=== PATIENT | male | born 1950 | race Caucasian/White ===

== ENCOUNTER 2017-03-19 10:16 | Outpatient (CLI) | payer MEDICARE ==
--- NOTE | 2017-03-19 12:44 | CT ---
CT ABDOMEN AND PELVIS WITH AND WITHOUT IV CONTRAST: HISTORY: Left renal mass. COMPARISON: 03/03/2017 FINDINGS: The lung bases are clear. A small, hyperdense stone is present within the dependent portion of the gallbladder lumen. A 1.3 cm exophytic cyst projects superiorly from the left kidney. It is slightl y hyperdense. At the inferior pole of the left kidney is a lobular, heterogeneously enhancing mass, measuring 4.2 cm in length x 4.8 cm in width x 4.3 cm in depth. The renal vein is not involved. No enlarged lymp h nodes are apparent within the retroperitoneum. There is calcification in the arterial structures. The tiny calcification at the lateral cortex of the right kidney, on the previous study, is no louise juan manuel visible. IMPRESSION: 1. Renal cell carcinoma, inferior pole, left kidney. No evidence of venous extension or retroperit henderson adenopathy. 2. Cholelithiasis. 3. Atherosclerosis. POS: [facility]
[2017-03-19] MEDS ORDERED: Iopamidol 370 76% 100 ML VIAL ONE (16:27)
== END 2017-03-19 10:17 | disposition home or self-care (01) ==
LOC: CT 10:16
PROVIDERS: ATTEND Urology
DX: N28.89 Other specified disorders of kidney and ureter (principal); C64.2 Malignant neoplasm of left kidney, except renal pelvis; K80.20 Calculus of gallbladder without cholecystitis without obstruction; I70.90 Unspecified atherosclerosis
CPT/HCPCS: 74178

== ENCOUNTER 2017-05-13 08:39 | Outpatient (CLI) | payer MEDICARE ==
--- NOTE | 2017-05-13 09:21 | RAD ---
TWO VIEW CHEST: History: Renal mass. FINDINGS: The lungs are clear. Heart and mediastinum appear unremarkable. Osseous structures are unremarkable. IMPRESSION: Unremarkable chest. POS: [facility]
--- NOTE | 2017-05-13 11:20 | ULT ---
BILATERAL RENAL ULTRASOUND: Date: 05/13/17 HISTORY: Renal mass. COMPARISON: None. CORRELATION: CT abdomen and pelvis dated 03/19/17. TECHNIQUE: Sagittal and transverse imaging of kidneys performed. FINDINGS: LEFT KIDNEY: No hydronephrosis. There is anechoic focus in the left kidney which may represent a complex cyst radha uring 1.4 x 1.2 cm. There is a solid echotexture mass emanating from the lower pole of the left kidne y measuring 4.2 x 3.0 cm. Overall, left kidney measures 7.0 x 5.4 x 10.5 cm. RIGHT KIDNEY: No hydronephrosis. No masses. 10.5 x 6.3 x 5.7 cm. Pre-void bladder volume is 49 cm2. No mucosal abnormality. IMPRESSION: Solid echotexture mass in lower pole of left kidney, compatible with finding noted on recent CT. POS: [facility]
--- NOTE | 2017-05-13 17:16 | NM ---
BONE SCAN: Date: 05/13/17 The patient was given 33 mCi of technetium labeled MDP IV. Whole body skeletal images were obtained w ith anterior and posterior projections. HISTORY: Renal mass. Assess for metastasis. FINDINGS: There is normal activity throughout the skeletal system. No evidence of osseous metastasis. IMPRESSION: Unremarkable bone scan. POS: [facility]
== END 2017-05-13 08:40 | disposition home or self-care (01) ==
LOC: ULT 08:39
PROVIDERS: ATTEND Urology
DX: N28.89 Other specified disorders of kidney and ureter (principal)
CPT/HCPCS: 71020; 76770; 78306; A9503

== ENCOUNTER 2017-05-22 12:59 | Outpatient (CLI) | payer MEDICARE ==
[2017-05-22 13:51] LABS: Hematocrit 46.3 % (42.0-52.0); Mean Platelet Volume 6.4 fL (7.4-10.4); Red Blood Cell (RBC) Count 5.24 mill/uL (4.70-6.10); White Blood Cell (WBC) Count 12.4 thou/uL (4.8-10.8)
[2017-05-22 13:57] LABS: Bilirubin Negative (Negative); Blood, Urine Trace (Negative); Glucose, Urine (Dipstick) Negative (Negative); Ketone, Urine Negative (Negative); Nitrite Negative (Negative); Protein, Urine (Dipstick) Negative (Neg-Trace); Urobilinogen 0.2 mg/dL (0.2-1.0)
[2017-05-22 13:59] LABS: Prothrombin Time 16.6 SEC (12.0-14.7)
[2017-05-22 14:00] LABS: PTT 55.4 SEC (22.9-36.1)
[2017-05-22 14:06] LABS: Bacteria/HPF None Seen HPF (None Seen); Hyaline Casts/LPF 0-3 HYALINE CAST LPF (0-3 Hyaline); RBC/HPF 0-3 HPF (0-3); Squamous Epithelial None Seen HPF (0-3); WBC/HPF 0-3 HPF (0-3)
[2017-05-22 14:19] LABS: ALT (SGPT) 21 U/L (8-55); AST (SGOT) 18 U/L (5-34); Alkaline Phosphatase 81 U/L (40-150); Anion Gap 14 mmol/L (10-20); BUN (Urea Nitrogen) 13 mg/dL (8.4-25.7); Bilirubin, Total 1.2 mg/dL (0.2-1.2); Calc. Creatinine Clearance 0 mL/min (70-130); Calcium 9.6 mg/dL (7.8-10.44); Carbon Dioxide 23 mmol/L (23-31); Chloride 103 mmol/L (98-107); Estimated GFR-MDRD 61; Globulin 3.5 g/dL (2.4-3.5); Protein, Total 7.8 g/dL (5.8-8.1)
== END 2017-05-22 13:00 | disposition home or self-care (01) ==
LOC: LABBT 12:59
PROVIDERS: ATTEND Urology
DX: Z01.818 Encounter for other preprocedural examination (principal); N28.89 Other specified disorders of kidney and ureter
CPT/HCPCS: 80053; 81001; 85027; 85610; 85730; 87086

== ENCOUNTER 2017-05-22 13:30 | Inpatient (IN) | payer MEDICARE ==
[2017-05-22 13:47] VITALS: BMI 34.0
[2017-06-02] MEDS ORDERED: Midazolam HCl 2 mg/2 ml Vial ONE ×2 (06:32→06:43)
[2017-06-02] MEDS ORDERED: Fentanyl 100 MCG/2 ML VIAL ONE ×2 (06:32→06:43)
[2017-06-02] MEDS ORDERED: Levofloxacin 500 mg/D5W 100 ml Premix Bag ONE (06:52)
[2017-06-02] MEDS ORDERED: CEFAZOLIN/Water 2 GM/20 ML SYRINGE ONE (06:55)
[2017-06-02] MEDS ORDERED: Sodium Chloride 0.9% 0 ML ONE (07:07)
[2017-06-02] MEDS ORDERED: diphenhydrAMINE 25 MG CAP PO PRN (08:15)
[2017-06-02] MEDS ORDERED: Promethazine HCl 25 MG/ML VIAL IM PRN (08:15)
[2017-06-02] MEDS ORDERED: diphenhydrAMINE 50 MG/ML VIAL IVP PRN (08:15)
[2017-06-02] MEDS ORDERED: Naloxone HCl 0.4 mg/ml Vial IV PRN (08:15)
[2017-06-02] MEDS ORDERED: Fentanyl/Bupivacaine 250 ML in Premix Bag 1 BAG EPIDURAL SCH (08:15)
[2017-06-02] MEDS ORDERED: Bupivacaine 0.25% 10 ML VIAL EPIDURAL PRN (08:15)
[2017-06-02] MEDS ORDERED: traMADol HCl 50 MG TAB PO PRN (08:15)
[2017-06-02] MEDS ORDERED: HYDROcodone/Acetaminophen 5/325 mg Tablet PO PRN (08:15)
[2017-06-02] MEDS ORDERED: Naloxone HCl 0.4 mg/ml Vial IVP PRN (08:15)
[2017-06-02] MEDS ORDERED: diphenhydrAMINE 50 MG/ML VIAL IM PRN (08:15)
[2017-06-02] MEDS ORDERED: Promethazine HCl 25 MG SUPP PR PRN (08:15)
[2017-06-02] MEDS ORDERED: Eucerin (Mineral Oil/Petrolatum,White) 30 gm Jar TOP PRN (08:15)
[2017-06-02] MEDS ORDERED: Vecuronium 10 MG VIAL ONE ×2 (10:39→10:41)
[2017-06-02] MEDS ORDERED: Glycopyrrolate 0.2 MG/ML 5 ML SYRINGE ONE (10:41)
[2017-06-02] MEDS ORDERED: Propofol 200 MG/20 ML VIAL ONE (10:41)
[2017-06-02] MEDS ORDERED: Lidocaine 1% PF 5 ML VIAL ONE (10:41)
[2017-06-02] MEDS ORDERED: PHENYLEPHRINE-NS 100 MCG/ML 10 ML SYRINGE ONE (10:41)
[2017-06-02] MEDS ORDERED: Ondansetron HCl/PF 4 MG/2 ML Vial ONE (10:41)
[2017-06-02] MEDS ORDERED: Dexamethasone 20 MG/5 ML VIAL ONE (10:41)
[2017-06-02] MEDS ORDERED: ePHEDrine/0.9% NaCl/PF SYRINGE 50 mg/10 ml ONE (10:41)
[2017-06-02] MEDS ORDERED: Albumin 5% 500 ML ONE (12:47)
--- NOTE | 2017-06-02 13:13 | OP ---
DATE OF PROCEDURE: 06/02/2017 SERVICE: Urology. SURGEON: Angel Pike M.D. HOSPICE PHYSICIAN: Destiney Singer D.O. PREOPERATIVE DIAGNOSIS: Left renal mass. POSTOPERATIVE DIAGNOSIS: Left renal cell carcinoma. PROCEDURE PERFORMED: Left open partial nephrectomy via retroperitoneal/flank approach. INDICATIONS FOR PROCEDURE: Mr. Mccormick is a 66-year-old white male with a history of a left renal mass which was discovered on workup for microhematuria. I discussed options with him including radic al nephrectomy versus partial nephrectomy and he elected for a partial nephrectomy. All risks and be nefits of the surgery were discussed and he has agreed to proceed forward. DESCRIPTION OF PROCEDURE: After identification of his armband and verification of consent, the patie nt was brought back to the operating room where he underwent general anesthesia with endotracheal int ubation. The patient had an epidural placed preoperatively and a Brewer catheter was placed intraoper atively. He was turned to the full flank position with the bed flexed in a modified jackknife positi on with all pressure points padded and axillary roll utilized. He was then prepped and draped in the usual sterile fashion. After appropriate timeout, an incision was made just below the 11th rib betw een the 11th and 12th rib using a 10-blade. Incision was carried down with Bovie electrocautery to t he external oblique which was then divided to the internal oblique. This was divided near the ribs i n the retroperitoneal space entered. The tissues were carefully dissected off the bottom of the elev enth rib taking care to avoid the intercostal arteries and pleural reflections. There was no obvious pleural injury noted and no bleeding from the rib. The remainder of the internal oblique and transv ersalis fascia were then opened, taking care to sweep the peritoneum medially to avoid peritoneotomy. Once the retroperitoneal space was opened adequately, the posterior space behind the kidney and Garret thee's fascia and the psoas muscle were divided. The Bookwalter was then placed for adequate retracti on. The initial dissection was begun around the mass. The lower pole of the kidney was dissected fr ee from the surrounding perinephric fat. Dissection was carried down medially along the psoas until the ureter was identified. This was isolated using a right-angle and a vessel loop to void later inj ury. The fat around the lower pole was dissected free of the mass and sent off for routine pathologi c evaluation. This was fairly densely adherent secondary to desmoplastic changes in the fat from the renal cell carcinoma. The remainder of the kidney was dissected free from the surrounding Gerota's fascia. There was a substantial amount of perinephric fat which had to be removed to allow for adequ ate mobilization of the kidney. The kidney was fairly cephalad. Therefore, we did have to mobilize the entire kidney to allow for proper mobilization and bringing the kidney down into view for the par tial nephrectomy. The hilum was then dissected. The renal vein and one of the renal arteries were e xposed. The other renal artery was somewhat hidden within the fat, which was very dense. Due to the difficulty and amount of dense fat around the renal hilum, we elected to use a Satinsky clamp rather than attempt to place bulldogs or remote clamp for securing the hilum. This was positioned in the l ocation where it would allow for adequate hemostasis. The kidney was checked to make sure that all m obilization was free. The ultrasound was then used to score the margins around the lower pole around the mass to ensure that the mass could be dissected free with negative margins. It was a fairly lar ge mass measuring almost 5 cm. Using ultrasound, this was marked circumferentially. Once this was d one, the Satinsky clamp was used to clamp down on the artery and stop all blood flow to the kidney. A kidney bag and ice was then used to chill the kidney down for cold ischemia. The ice was left in p lace for 5 minutes and then the ice removed along with the kidney bag. The remaining water and ice w ere suctioned out. The dissection began initially through the capsule of the kidney with the Bovie e lectrocautery. The cortex and the medulla were dissected free using the back side of a knife handle. This was done circumferentially all the way down to the collecting system which had to be cut using Metzenbaum scissors. This allowed for complete dissection and removal of the mass. The bottom surf lor was inked and sent off for frozen margins. We did specify to do this as quickly as possible as t he kidney was unclamped. The renorrhaphy was then begun while the specimen was sent off and the cal ecting system was closed with a running 4-0 Vicryl. A few additional [id number] were placed on some larger renal sinusoids and arteries that were apparent. The remaining kidney was then closed u sing a 0 chromic in an interrupted horizontal mattress fashion with pledgets. This brought the ekaterina y together nicely. Upon completion, the frozen margin came in and that they stated that the margins were close, but they were negative. Satisfied with that, we did not need to do anything further. Th e argon beam safety manager was used to cauterize the cut edge of the kidney near the capsule and the cor lucy avoiding any of the chromic sutures. The clamp was then taken off for a total cold ischemia time of 46 minutes. There did not appear to be any serious bleeding, although there was slow oozing comi ng from the center of the renorrhaphy. This was watched for several minutes and it did not appear to pick pack worker or become more brisk. It was just a very slow ooze. FloSeal was applied after irrigating t he retroperitoneum copiously with water and the FloSeal covered with Surgicel to keep it from spreadi ng and coming off during closure. The ureter was reinspected and found to be free of any injury or t rauma. The vessel loop was removed. A NICO drain was placed in the retroperitoneum in the dependent p ortion of the fat away from the renorrhaphy. The drain stitch was placed with a 3-0 nylon. The manas gtuiérrez rest was then taken down and some of the flexion taken out of the bed. The incision was closed in two layers with the internal oblique closed separately from the external oblique. The argon beam co agulator was then used to cauterize the subcutaneous fat and Renae applied. The skin was then close d with paulina. The patient was then taken out of positioning and returned back to the supine positi on. He was extubated, awakened, and taken to PACU for recovery in stable condition. COMPLICATIONS: None. ESTIMATED BLOOD LOSS: 150 mL. RETAINED TUBES AND DRAINS: A #19 NICO drain in the left retroperitoneum and a 16 Maori Brewer catheter . SPECIMENS: Perinephric fat and a left renal mass which frozen margin was negative. DISPOSITION: Patient will go to PACU and then go to a hospital bed where he will remain inpatient fo r his recovery. Once he is discharged, his surveillance will be handled on an outpatient basis.
[2017-06-02 14:14] LABS: Hemoglobin 13.1 g/dL (14.0-18.0); Mean Corpuscular HGB CONC 35.1 g/dL (32.0-36.0); Mean Corpuscular Hemoglobin 31.2 pg (27.0-31.0); Platelet Count 196 thou/uL (130-400); RBC Distribution Width 12.5 % (11.5-14.5); Red Blood Cell (RBC) Count 4.19 mill/uL (4.70-6.10); White Blood Cell (WBC) Count 17.2 thou/uL (4.8-10.8)
[2017-06-02 14:40] LABS: Anion Gap 16 mmol/L (10-20); BUN (Urea Nitrogen) 15 mg/dL (8.4-25.7); Calc. Creatinine Clearance 59 mL/min (70-130); Calcium 8.5 mg/dL (7.8-10.44); Carbon Dioxide 20 mmol/L (23-31); Chloride 105 mmol/L (98-107); Estimated GFR-MDRD 40; Glucose 163 mg/dL (80-115); Sodium 136 mmol/L (136-145)
[2017-06-02] MEDS ORDERED: Oxybutynin 5 MG TAB PO PRN (14:56)
[2017-06-02] MEDS ORDERED: hydrALAZINE 20 MG/ML VIAL SLOW IVP PRN (14:56)
[2017-06-02] MEDS ORDERED: Mag-Al 1200 mg/1200 mg/30 ML UDCUP PO PRN (14:56)
--- NOTE | 2017-06-02 15:33 | RAD ---
PORTABLE CHEST: Date: 06-02-17 Time: 1:31 p.m. History: Evaluate for pneumothorax. FINDINGS: Comparison is made with exam of 05-13-17. There is continued elevation of the right hemidiaphragm. The heart size is borderline. Lungs are expa nded without confluent areas of consolidation, pneumothorax, or pleural effusions. IMPRESSION: No acute process. POS: [facility]
[2017-06-02] MEDS: Ondansetron HCl/PF 4 MG/2 ML Vial IVP PRN (16:58)
[2017-06-02] MEDS: Sodium Chloride 0.9% 1,000 ML IV SCH (16:58)
[2017-06-02] MEDS ORDERED: Labetalol HCl 100 MG/20 ML VIAL SLOW IVP SCH (18:00)
[2017-06-02] MEDS: CEFOXITIN IVPB SCH (18:08)
[2017-06-02] MEDS: SODIUM CHLORIDE 0.9% IVPB SCH (18:08)
[2017-06-02] MEDS: ADMIXTURE FEE CHEMO IVPB SCH (18:08)
[2017-06-02] MEDS: Docusate 100 MG CAP PO SCH (22:36)
[2017-06-03] MEDS: ADMIXTURE FEE CHEMO IVPB SCH ×2 (00:06→09:31)
[2017-06-03] MEDS: CEFOXITIN IVPB SCH ×2 (00:06→09:31)
[2017-06-03] MEDS: SODIUM CHLORIDE 0.9% IVPB SCH ×2 (00:06→09:31)
[2017-06-03] MEDS: Sodium Chloride 0.9% 1,000 ML IV SCH (04:57)
[2017-06-03 05:36] LABS: #Lymphocytes 0.5 thou/uL (1.20-3.40); #Monocytes 1.1 thou/uL (0.11-0.59); #Neutrophils 14.6 thou/uL (1.40-6.50); %Eosinophils 0.1 % (0.0-10.0); %Lymphocytes 3.3 % (21.0-51.0); %Monocytes 6.5 % (0.0-10.0); %Neutrophils 90.1 % (42.0-75.0); Hemoglobin 13.2 g/dL (14.0-18.0); Mean Corpuscular HGB CONC 34.3 g/dL (32.0-36.0); Mean Corpuscular Hemoglobin 30.3 pg (27.0-31.0); Mean Corpuscular Volume 88.4 fl (80.0-94.0); Mean Platelet Volume 6.7 fL (7.4-10.4); Platelet Count 180 thou/uL (130-400); RBC Distribution Width 12.4 % (11.5-14.5); Red Blood Cell (RBC) Count 4.35 mill/uL (4.70-6.10); White Blood Cell (WBC) Count 16.2 thou/uL (4.8-10.8)
[2017-06-03 05:50] LABS: Anion Gap 14 mmol/L (10-20); BUN (Urea Nitrogen) 21 mg/dL (8.4-25.7); Calc. Creatinine Clearance 61 mL/min (70-130); Calcium 8.9 mg/dL (7.8-10.44); Carbon Dioxide 21 mmol/L (23-31); Chloride 102 mmol/L (98-107); Estimated GFR-MDRD 42; Glucose 127 mg/dL (80-115); Potassium 4.6 mmol/L (3.5-5.1); Sodium 132 mmol/L (136-145)
[2017-06-03] MEDS: Atenolol 25 MG TAB PO SCH (10:12)
[2017-06-03] MEDS: Docusate 100 MG CAP PO SCH ×2 (10:13→20:42)
[2017-06-03] MEDS: traMADol HCl 50 MG TAB PO PRN (10:14)
[2017-06-03] MEDS ORDERED: Fentanyl/Bupivacaine 250 ML in Premix Bag 1 BAG EPIDURAL SCH (12:00)
[2017-06-03] MEDS: 1/2 NS W IV SCH (21:19)
[2017-06-03] MEDS: KCL IV SCH (21:19)
[2017-06-03] MEDS: D5 IV SCH (21:19)
[2017-06-04] MEDS: 1/2 NS W IV SCH ×4 (03:38→12:08)
[2017-06-04] MEDS: KCL IV SCH ×4 (03:38→12:08)
[2017-06-04] MEDS: D5 IV SCH ×6 (03:38→19:33)
[2017-06-04 06:15] LABS: #Lymphocytes 1.3 thou/uL (1.20-3.40); #Monocytes 1.6 thou/uL (0.11-0.59); #Neutrophils 13.9 thou/uL (1.40-6.50); %Basophils 0.1 % (0.0-1.0); %Eosinophils 0.2 % (0.0-10.0); %Lymphocytes 7.9 % (21.0-51.0); %Monocytes 9.7 % (0.0-10.0); %Neutrophils 82.1 % (42.0-75.0); Hemoglobin 12.8 g/dL (14.0-18.0); Mean Corpuscular HGB CONC 34.4 g/dL (32.0-36.0); Mean Corpuscular Volume 90.2 fl (80.0-94.0); Mean Platelet Volume 6.5 fL (7.4-10.4); Platelet Count 187 thou/uL (130-400); RBC Distribution Width 12.8 % (11.5-14.5); Red Blood Cell (RBC) Count 4.12 mill/uL (4.70-6.10); White Blood Cell (WBC) Count 16.9 thou/uL (4.8-10.8)
[2017-06-04 06:35] LABS: Anion Gap 11 mmol/L (10-20); BUN (Urea Nitrogen) 22 mg/dL (8.4-25.7); Calc. Creatinine Clearance 55 mL/min (70-130); Calcium 9.3 mg/dL (7.8-10.44); Carbon Dioxide 27 mmol/L (23-31); Chloride 100 mmol/L (98-107); Estimated GFR-MDRD 37; Glucose 109 mg/dL (80-115); Potassium 4.5 mmol/L (3.5-5.1); Sodium 133 mmol/L (136-145)
[2017-06-04] MEDS: Atenolol 25 MG TAB PO SCH (09:22)
[2017-06-04] MEDS: Docusate 100 MG CAP PO SCH ×2 (09:22→20:55)
[2017-06-04] MEDS: HYDROcodone/Acetaminophen 5/325 mg Tablet PO PRN ×2 (13:34→18:45)
[2017-06-04] MEDS: POTASSIUM CHLORIDE IV SCH ×2 (16:25→19:33)
[2017-06-04] MEDS: 1/2 NS IV SCH ×2 (16:25→19:33)
[2017-06-05] MEDS: Sodium Chloride 0.9% 1,000 ML IV SCH ×3 (01:20→16:34)
[2017-06-05 06:05] LABS: #Eosinphils 0.1 thou/uL (0.0-0.7); #Lymphocytes 1.1 thou/uL (1.20-3.40); #Monocytes 1.3 thou/uL (0.11-0.59); #Neutrophils 10.7 thou/uL (1.40-6.50); %Basophils 0.3 % (0.0-1.0); %Eosinophils 0.8 % (0.0-10.0); %Lymphocytes 8.4 % (21.0-51.0); %Neutrophils 80.5 % (42.0-75.0); Hemoglobin 12.9 g/dL (14.0-18.0); Mean Corpuscular HGB CONC 34.6 g/dL (32.0-36.0); Mean Corpuscular Volume 89.5 fl (80.0-94.0); Mean Platelet Volume 6.2 fL (7.4-10.4); Platelet Count 161 thou/uL (130-400); RBC Distribution Width 12.5 % (11.5-14.5); Red Blood Cell (RBC) Count 4.17 mill/uL (4.70-6.10); White Blood Cell (WBC) Count 13.3 thou/uL (4.8-10.8)
[2017-06-05 06:24] LABS: Anion Gap 12 mmol/L (10-20); BUN (Urea Nitrogen) 17 mg/dL (8.4-25.7); Calc. Creatinine Clearance 71 mL/min (70-130); Calcium 8.9 mg/dL (7.8-10.44); Carbon Dioxide 23 mmol/L (23-31); Chloride 103 mmol/L (98-107); Estimated GFR-MDRD 50; Glucose 105 mg/dL (80-115); Potassium 4.7 mmol/L (3.5-5.1); Sodium 133 mmol/L (136-145)
[2017-06-05] MEDS: Docusate 100 MG CAP PO SCH ×2 (08:15→21:41)
[2017-06-05] MEDS: Atenolol 25 MG TAB PO SCH ×2 (08:16→21:41)
[2017-06-05] MEDS: HYDROcodone/Acetaminophen 5/325 mg Tablet PO PRN (10:07)
[2017-06-05] MEDS: Ondansetron HCl/PF 4 MG/2 ML Vial IVP PRN (10:47)
[2017-06-05] MEDS ORDERED: Labetalol HCl 100 MG/20 ML VIAL SLOW IVP SCH (11:45)
[2017-06-05] MEDS ORDERED: hydrALAZINE 10 MG TAB PO SCH (12:00)
[2017-06-05] MEDS ORDERED: hydrALAZINE 20 MG/ML VIAL SLOW IVP PRN (14:09)
[2017-06-05] MEDS ORDERED: Pantoprazole 40 MG VIAL IVP SCH (14:30)
[2017-06-05 15:03] LABS: Magnesium 1.7 mg/dL (1.6-2.6)
[2017-06-05 15:04] LABS: ALT (SGPT) 27 U/L (8-55); AST (SGOT) 33 U/L (5-34); Albumin 3.4 g/dL (3.4-4.8); Alkaline Phosphatase 65 U/L (40-150); Bilirubin, Direct 0.9 mg/dL (0.1-0.3); Bilirubin, Total 1.7 mg/dL (0.2-1.2); Protein, Total 6.6 g/dL (5.8-8.1)
[2017-06-05 15:14] LABS: Troponin I 0.103 ng/mL (< 0.028)
--- NOTE | 2017-06-05 15:22 | RAD ---
ABDOMEN 2 VIEWS: HISTORY: Abdominal pain, nausea, and vomiting. COMPARISON: CT of abdomen 03/19/17. FINDINGS: A drain is present in the left hemiadomen. There are skin paulina. There are dilated loops of large and small bowel. IMPRESSION: Dilated large and small bowel with surgical drain left hemiabdomen with skin paulina. If the patient is recently postop, this is most likely suggestive of ileus. POS: [facility]
[2017-06-05 18:20] LABS: Troponin I 0.096 ng/mL (< 0.028)
--- NOTE | 2017-06-05 19:50 | PDOC.PN ---
- Subjective Encounter Start Date: 06/05/17 Encounter Start Time: 16:00 Patient seen and examined. No new complaints. Had nausea with one episode of vomiting 30 min after dc of epidural. No BM. Not passing gas. No CP/ palpitations. RN reported BP in higher range. - Objective Vital Signs & Weight: Vital Signs (12 hours) Temp Pulse Resp BP Pulse Ox 06/05/17 16:25 97 06/05/17 15:45 98.2 F 95 18 127/82 97 06/05/17 13:15 102 H 06/05/17 12:02 102 H 06/05/17 11:45 98.4 F 102 H 18 165/93 H 98 06/05/17 11:33 85 156/95 H 06/05/17 10:23 169/90 H 06/05/17 10:09 178/100 H 06/05/17 10:02 88 06/05/17 10:00 151/91 H 06/05/17 08:16 88 06/05/17 07:55 98.4 F 88 18 06/05/17 07:50 98.2 F 91 18 161/90 H 96 Weight Weight 224 lb I&O: 06/04/17 06/05/17 06/06/17 06:59 06:59 06:59 Intake Total 2180 1680 1400 Output Total 2880 2050 1670 Balance -700 370 270 Result Diagrams: 06/06/17 06:02 06/06/17 06:02 Radiology Reviewed by me: Yes (KUB - Ileus) EKG Reviewed by me: Yes (Afib from [employer] office) Phys Exam - Physical Examination Constitutional: NAD Neck: no JVD Respiratory: no wheezing, no rales, no rhonchi Symmetrical. Dec AE at bases Cardiovascular: no rub, irregular no heaves/pulsations Gastrointestinal: soft, positive bowel sounds (hypoactive) minimal gen tenderness, no rebound/guarding Musculoskeletal: no edema Neurological: non-focal, moves all 4 limbs Psychiatric: normal affect, A&O x 3 Dx/Plan - Plan DVT proph w/SCDs IMPRESSION: 1. N/V due to Ileus 2. HTN - uncontrolled 3. Chronic Afib - Anticoag on hold due to surgery, rate appears to be controlled. 4. Obesity BMI 34.1 5. TIMOTHY/CKD 2 6. Abn LFTs prob due to Ileus 7. Elevated troponins due to elevated BP. No chest pain reported PLAN: * NPO except meds * Change Atenolol to BID * Add PRN meds * Cont to monitor * Full code/DPOA - self with family * Thank you for this consultation. Will follow. Laboratory Tests 06/05/17 06/05/17 06/05/17 05:47 14:33 14:33 Creatinine 1.41 H Total Bilirubin 1.7 H Troponin I 0.103 H 06/05/17 17:42 Creatinine Total Bilirubin Troponin I 0.096 H Review of Systems - Review of Systems Respiratory: negative: Cough, Dry, Shortness of Breath, Hemoptysis, SOB with Excertion, Pleuritic Pain, Sputum, Wheezing Cardiovascular: negative: chest pain, palpitations, orthopnea, paroxysmal nocturnal dyspnea, edema, light headedness - Medications/Allergies Allergies/Adverse Reactions: Allergies Allergy/AdvReac Type Severity Reaction Status Date / Time No Known Allergies Allergy Verified 05/22/17 13:47 Medications: Current Medications Hydrocodone Bitart/Acetaminophen ([place] 5/325) 1 tab PO Q4H PRN PRN Reason: Mild Pain 0-3 Hydrocodone Bitart/Acetaminophen ([place] 5/325) 2 tab PO Q4H PRN PRN Reason: For Moderate Pain 4-6 Last Admin: 06/05/17 10:07 Dose: 2 tab Al Hydroxide/Mg Hydroxide (Maalox) 30 ml PO Q4H PRN PRN Reason: Indigestion Atenolol (Tenormin) 25 mg PO BID [facility] Diltiazem HCl (Cardizem Cd) 360 mg PO QAM [facility] Last Admin: 06/05/17 08:15 Dose: 360 mg Diphenhydramine HCl (Benadryl) 25 mg PO Q3H PRN PRN Reason: Itching Diphenhydramine HCl (Benadryl) 25 mg IM Q3H PRN PRN Reason: Itching Diphenhydramine HCl (Benadryl) 25 mg IVP Q3H PRN PRN Reason: Itching Last Admin: 06/03/17 20:41 Dose: 25 mg Docusate Sodium (Colace) 100 mg PO BID [facility] Last Admin: 06/05/17 08:15 Dose: 100 mg Hydralazine HCl (Apresoline) 10 mg SLOW IVP Q4H PRN PRN Reason: SBP Greater Than 180 Sodium Chloride (Normal Saline 0.9%) 1,000 mls @ 50 mls/hr IV .Q20H [facility] Last Admin: 06/05/17 16:34 Dose: Not Given Labetalol HCl (Normodyne) 10 mg SLOW IVP Q4H PRN PRN Reason: Systolic BP > 180 Mineral Oil/White Petrolatum (Eucerin Cream) 0 gm TOP PRN PRN PRN Reason: Itching Naloxone HCl (Narcan) 0.2 mg IV Q5MIN PRN PRN Reason: RR <=8 OR OBTUNDED/UNAROUSABLE Naloxone HCl (Narcan) 0.1 mg IVP Q15MIN PRN PRN Reason: URINARY RETENTION Ondansetron HCl (Zofran) 4 mg IVP Q6H PRN PRN Reason: Nausea/Vomiting Last Admin: 06/05/17 10:47 Dose: 4 mg Oxybutynin Chloride (Ditropan) 5 mg PO Q8H PRN PRN Reason: Bladder Spasms Pantoprazole Sodium (Protonix) 40 mg IVP Q12HR [place] Promethazine HCl (Phenergan) 12.5 mg IM Q4H PRN PRN Reason: Nausea Promethazine HCl (Phenergan Suppository) 25 mg WA Q4H PRN PRN Reason: Nausea/Vomiting Sodium Chloride (Flush - Normal Saline) 10 ml IVF PRN PRN PRN Reason: Saline Flush Tramadol HCl (Ultram) 50 mg PO Q6H PRN PRN Reason: Mild Pain 1-3 Last Admin: 06/03/17 10:14 Dose: 50 mg Tramadol HCl (Ultram) 100 mg PO Q6H PRN PRN Reason: Moderate Pain 4-6 Zolpidem Tartrate (Ambien) 5 mg PO HSPRN PRN PRN Reason: Insomnia
[2017-06-05] MEDS: Pantoprazole 40 MG VIAL IVP SCH (21:46)
[2017-06-05] MEDS ORDERED: Morphine 2 MG/ML SYRINGE SLOW IVP SCH (22:00)
[2017-06-06] MEDS ORDERED: Morphine 2 MG/ML SYRINGE SLOW IVP PRN (00:12)
[2017-06-06] MEDS ORDERED: Morphine 5 mg/5 ml in 0.9% NaCl/PF SYRINGE SLOW IVP PRN (00:13)
[2017-06-06] MEDS: Labetalol HCl 100 MG/20 ML VIAL SLOW IVP PRN ×2 (05:47→16:06)
[2017-06-06 06:22] LABS: #Lymphocytes 0.5 thou/uL (1.20-3.40); #Monocytes 0.8 thou/uL (0.11-0.59); #Neutrophils 9.2 thou/uL (1.40-6.50); %Eosinophils 0.4 % (0.0-10.0); %Lymphocytes 4.8 % (21.0-51.0); %Monocytes 7.8 % (0.0-10.0); %Neutrophils 86.9 % (42.0-75.0); Hemoglobin 12.3 g/dL (14.0-18.0); Mean Corpuscular HGB CONC 34.2 g/dL (32.0-36.0); Mean Corpuscular Hemoglobin 30.2 pg (27.0-31.0); Mean Corpuscular Volume 88.3 fl (80.0-94.0); Mean Platelet Volume 6.5 fL (7.4-10.4); Platelet Count 177 thou/uL (130-400); RBC Distribution Width 12.4 % (11.5-14.5); Red Blood Cell (RBC) Count 4.07 mill/uL (4.70-6.10); White Blood Cell (WBC) Count 10.6 thou/uL (4.8-10.8)
[2017-06-06 06:48] LABS: ALT (SGPT) 24 U/L (8-55); AST (SGOT) 32 U/L (5-34); Albumin 3.1 g/dL (3.4-4.8); Alkaline Phosphatase 69 U/L (40-150); Anion Gap 12 mmol/L (10-20); BUN (Urea Nitrogen) 17 mg/dL (8.4-25.7); Bilirubin, Total 1.4 mg/dL (0.2-1.2); Calc. Creatinine Clearance 86 mL/min (70-130); Carbon Dioxide 23 mmol/L (23-31); Chloride 102 mmol/L (98-107); Estimated GFR-MDRD 62; Glucose 124 mg/dL (80-115); Magnesium 1.8 mg/dL (1.6-2.6); Potassium 3.9 mmol/L (3.5-5.1); Protein, Total 6.1 g/dL (5.8-8.1); Sodium 133 mmol/L (136-145)
[2017-06-06] MEDS: Atenolol 25 MG TAB PO SCH ×3 (07:20→21:11)
[2017-06-06] MEDS: Docusate 100 MG CAP PO SCH ×3 (07:21→21:12)
[2017-06-06] MEDS: Pantoprazole 40 MG VIAL IVP SCH ×2 (07:30→21:12)
[2017-06-06] MEDS ORDERED: cloNIDine 0.1mg/24 Hour PATCH TD SCH (08:00)
[2017-06-06] MEDS: Sodium Chloride 0.9% 1,000 ML IV SCH ×3 (11:31→23:13)
--- NOTE | 2017-06-06 12:04 | RAD ---
2 VIEWS ABDOMEN: Date: 06/06/17 HISTORY: Follow-up ileus. COMPARISON: 06/05/17. FINDINGS: Surgical clips and drainage catheter again overlie the lateral left mid abdomen. There is persistent gaseous distention of the colon, as well as gaseous distention of loops of small bowel. Findings have not significantly changed when compared to the prior study. No other interval change. IMPRESSION: 1. Stable mild gaseous distention of loops of small and large bowel. Findings again may be related t o postoperative ileus. Continued follow-up as indicated is recommended. 2. Postsurgical changes lateral left abdomen with drainage catheter again noted overlying the latera l left abdomen. POS: [facility]
[2017-06-06] MEDS: Acetaminophen 1,000 MG in Premix Bag 1 BAG IVPB PRN ×2 (15:04→21:08)
--- NOTE | 2017-06-06 17:43 | PRG ---
DATE OF SERVICE: 06/06/2017 SUBJECTIVE: The patient states he is not feeling well today. He denies nausea or uncontrolled pain and does not really know why he does not feel well, but just has a generalized sense of malaise. He has no appetite and still has not passed any flatus. He has done some walking, but not very much. H is KUB had demonstrated an ileus previously. He had gone down for another KUB today, which demonstra josh stable mild gaseous distention of loops of small and large bowel, likely correlated with an ileus . He denies any chest pain or shortness of breath. OBJECTIVE: VITAL SIGNS: Temperature 98.7, pulse 99, respirations 20, blood pressure 151/90, saturation 95% on r oom air. GENERAL: No apparent distress, communicative and alert. CARDIOVASCULAR: Irregularly irregular. ABDOMEN: Soft, nontender, slightly distended, hypoactive bowel sounds. Incision clean, dry, and int act. NICO is serosanguineous with scant output. GENITOURINARY: No catheter in place. Testicles bilaterally descended. No edema. EXTREMITIES: No clubbing, cyanosis or edema. LABORATORY DATA: The full set of labs in the [facility] system, which I have reviewed. Of note, the p atient's white count is 10.6 with hemoglobin of 12.3. Creatinine is currently 1.16 with a sodium of 133, which is stable. Troponins are mildly elevated at 0.09 and trending down. ASSESSMENT AND PLAN: A 67-year-old white male with left clear cell carcinoma, status post open parti al nephrectomy, postoperative day #4 with postop ileus, which is currently stable. He does not appea r to be getting any worse, but has not shown any signs of improvement yet. We will leave him n.p.o. on IV fluids and continue to have him ambulate aggressively. The patient likely had a troponin leak secondary to his episode of tachycardia. This is currently being managed by [facility] and I rafita l follow the recommendations, if Cardiology consultation as needed, that would be acceptable and fine . I will start him on thrombosis prophylaxis with subcutaneous heparin. He should continue to ambul ate. He is voiding well without his catheter. We will continue to monitor his labs. His NICO fluid d oes not have any evidence of urine leak and his renal function has returned back to baseline. Dr. Erwin will be covering for the holidays, he will continue to see the patient on my behalf.
--- NOTE | 2017-06-06 20:53 | PDOC.PN ---
- Subjective Encounter Start Date: 06/06/17 Encounter Start Time: 17:00 Patient seen and examined. Feels gen weak. Nausea better. No overnight events - Objective MAR Reviewed: Yes Vital Signs & Weight: Vital Signs (12 hours) Temp Pulse Resp BP Pulse Ox 06/06/17 20:00 98.4 F 102 H 20 166/95 H 97 06/06/17 16:06 89 06/06/17 16:00 98.7 F 92 18 173/84 H 97 06/06/17 12:00 98.7 F 99 20 151/90 H 95 06/06/17 09:31 157/81 H Weight Weight 224 lb I&O: 06/05/17 06/06/17 06/07/17 06:59 06:59 06:59 Intake Total 1680 2775 1375 Output Total 20490 650 Balance -370 685 725 Result Diagrams: 06/07/17 05:19 06/07/17 05:19 Radiology Reviewed by me: Yes (KUB - Ileus) Phys Exam - Physical Examination Constitutional: NAD Gastrointestinal: soft, positive bowel sounds (hypoactive) Neurological: non-focal, moves all 4 limbs Psychiatric: A&O x 3 Dx/Plan - Plan DVT proph w/heparin, DVT proph w/SCDs IMPRESSION: 1. Post op Ileus 2. HTN - uncontrolled 3. Chronic Afib - Anticoag on hold due to surgery, rate appears to be controlled. 4. Obesity BMI 34.1 5. TIMOTHY/CKD 2 6. Abn LFTs prob due to Ileus 7. Elevated troponins due to elevated BP. No chest pain reported PLAN: * Add Clonidine patch * Cont Atenolol 25 mg BID * Change Cardizem to 180 mg BID * Cont PRN meds * NPO except meds * Heparin for DVT prophylaxis * Cont to monitor Review of Systems - Review of Systems Respiratory: negative: Cough, Dry, Shortness of Breath, Hemoptysis, SOB with Excertion, Pleuritic Pain, Sputum, Wheezing Cardiovascular: negative: chest pain, palpitations, orthopnea, paroxysmal nocturnal dyspnea, edema, light headedness Gastrointestinal: negative: Nausea, Vomiting, Abdominal Pain, Diarrhea, Constipation, Melena, Hematochezia - Medications/Allergies Allergies/Adverse Reactions: Allergies Allergy/AdvReac Type Severity Reaction Status Date / Time No Known Allergies Allergy Verified 05/22/17 13:47 Medications: Current Medications Hydrocodone Bitart/Acetaminophen ([place] 5/325) 1 tab PO Q4H PRN PRN Reason: Mild Pain 0-3 Hydrocodone Bitart/Acetaminophen ([place] 5/325) 2 tab PO Q4H PRN PRN Reason: For Moderate Pain 4-6 Last Admin: 06/05/17 10:07 Dose: 2 tab Al Hydroxide/Mg Hydroxide (Maalox) 30 ml PO Q4H PRN PRN Reason: Indigestion Atenolol (Tenormin) 25 mg PO BID [facility] Last Admin: 06/06/17 08:12 Dose: 25 mg Clonidine ([id number]-[id number] Patch) 0.1 mg TD Q7D [facility] Last Admin: 06/06/17 08:12 Dose: 0.1 mg Diltiazem HCl (Cardizem Cd) 180 mg PO BID [facility] Last Admin: 06/06/17 08:12 Dose: 180 mg Diphenhydramine HCl (Benadryl) 25 mg PO Q3H PRN PRN Reason: Itching Diphenhydramine HCl (Benadryl) 25 mg IM Q3H PRN PRN Reason: Itching Diphenhydramine HCl (Benadryl) 25 mg IVP Q3H PRN PRN Reason: Itching Last Admin: 06/03/17 20:41 Dose: 25 mg Docusate Sodium (Colace) 100 mg PO BID [facility] Last Admin: 06/06/17 08:12 Dose: 100 mg Heparin Sodium (Porcine) (Heparin) 5,000 units SC TID [facility] Hydralazine HCl (Apresoline) 10 mg SLOW IVP Q4H PRN PRN Reason: SBP Greater Than 180 Last Admin: 06/06/17 07:29 Dose: 10 mg Acetaminophen 1,000 mg/ Device 100 mls @ 400 mls/hr IVPB Q6HR PRN PRN Reason: Pain (Pt is NPO due Ileus) Stop: 06/08/17 14:41 Last Admin: 06/06/17 15:04 Dose: 100 mls Sodium Chloride (Normal Saline 0.9%) 1,000 mls @ 75 mls/hr IV .[id number] [facility] Labetalol HCl (Normodyne) 10 mg SLOW IVP Q4H PRN PRN Reason: Systolic BP > 180 Last Admin: 06/06/17 16:06 Dose: 2 ml Mineral Oil/White Petrolatum (Eucerin Cream) 0 gm TOP PRN PRN PRN Reason: Itching Morphine Sulfate (Morphine) 2 mg SLOW IVP Q2H PRN PRN Reason: Mild-Moderate Pain (1-5) Morphine Sulfate/Sodium Chloride (Morphine 0.9% Nacl/Pf 5 Mg/5 M) 4 mg SLOW IVP Q2H PRN PRN Reason: Moderate to Severe Pain (6-10) Naloxone HCl (Narcan) 0.2 mg IV Q5MIN PRN PRN Reason: RR <=8 OR OBTUNDED/UNAROUSABLE Naloxone HCl (Narcan) 0.1 mg IVP Q15MIN PRN PRN Reason: URINARY RETENTION Ondansetron HCl (Zofran) 4 mg IVP Q6H PRN PRN Reason: Nausea/Vomiting Last Admin: 06/05/17 10:47 Dose: 4 mg Oxybutynin Chloride (Ditropan) 5 mg PO Q8H PRN PRN Reason: Bladder Spasms Pantoprazole Sodium (Protonix) 40 mg IVP Q12HR [facility] Last Admin: 06/06/17 07:30 Dose: 40 mg Promethazine HCl (Phenergan) 12.5 mg IM Q4H PRN PRN Reason: Nausea Promethazine HCl (Phenergan Suppository) 25 mg [place] Q4H PRN PRN Reason: Nausea/Vomiting Sodium Chloride (Flush - Normal Saline) 10 ml IVF PRN PRN PRN Reason: Saline Flush Tramadol HCl (Ultram) 50 mg PO Q6H PRN PRN Reason: Mild Pain 1-3 Last Admin: 06/03/17 10:14 Dose: 50 mg Tramadol HCl (Ultram) 100 mg PO Q6H PRN PRN Reason: Moderate Pain 4-6 Zolpidem Tartrate (Ambien) 5 mg PO HSPRN PRN PRN Reason: Insomnia
[2017-06-06] MEDS: Heparin 5,000 UNITS/ML VIAL SC SCH (21:13)
[2017-06-07 05:45] LABS: #Eosinphils 0.1 thou/uL (0.0-0.7); #Lymphocytes 0.8 thou/uL (1.20-3.40); #Neutrophils 9.2 thou/uL (1.40-6.50); %Basophils 0.3 % (0.0-1.0); %Eosinophils 0.8 % (0.0-10.0); %Lymphocytes 6.8 % (21.0-51.0); %Neutrophils 83.1 % (42.0-75.0); Hemoglobin 12.4 g/dL (14.0-18.0); Mean Corpuscular HGB CONC 34.4 g/dL (32.0-36.0); Mean Corpuscular Hemoglobin 30.7 pg (27.0-31.0); Mean Corpuscular Volume 89.2 fl (80.0-94.0); Mean Platelet Volume 6.2 fL (7.4-10.4); Platelet Count 206 thou/uL (130-400); RBC Distribution Width 12.5 % (11.5-14.5); Red Blood Cell (RBC) Count 4.05 mill/uL (4.70-6.10); White Blood Cell (WBC) Count 11.1 thou/uL (4.8-10.8)
[2017-06-07 06:01] LABS: Anion Gap 13 mmol/L (10-20); BUN (Urea Nitrogen) 16 mg/dL (8.4-25.7); Calc. Creatinine Clearance 91 mL/min (70-130); Carbon Dioxide 21 mmol/L (23-31); Chloride 104 mmol/L (98-107); Estimated GFR-MDRD 66; Glucose 100 mg/dL (80-115); Phosphorus 3.1 mg/dL (2.3-4.7); Potassium 3.7 mmol/L (3.5-5.1); Sodium 134 mmol/L (136-145)
[2017-06-07] MEDS: Sodium Chloride 0.9% 1,000 ML IV SCH ×3 (06:30→16:43)
[2017-06-07] MEDS ORDERED: cloNIDine 0.1 MG TAB PO PRN (08:47)
[2017-06-07] MEDS: Atenolol 25 MG TAB PO SCH ×2 (08:56→21:59)
[2017-06-07] MEDS: Heparin 5,000 UNITS/ML VIAL SC SCH ×3 (08:57→22:00)
[2017-06-07] MEDS: Docusate 100 MG CAP PO SCH ×2 (08:57→21:59)
[2017-06-07] MEDS: Pantoprazole 40 MG VIAL IVP SCH ×2 (08:57→22:00)
--- NOTE | 2017-06-07 12:53 | PRG ---
DATE OF SERVICE: 06/07/2017 HISTORY OF PRESENT ILLNESS: Mr. Mccormick is a very pleasant 67-year-old white male with a history o f a left renal mass, he underwent a partial nephrectomy on 06/02/[address] Pike. Partial nephre ctomy identified a clear cell renal cell carcinoma. He had negative surgical margins. There is no e vidence of extension of the cancer into the perinephric fat either. The patient postoperatively has done reasonably well. He has had more or less protracted ileus and hypertension, which is not yet re solved. Patient is otherwise doing well. He reports that he had a small bowel movement this morning , which he reports is of regular character and is passing flatus today too. PHYSICAL EXAMINATION: VITAL SIGNS: Temperature is 98.3, the patient is afebrile, pulse is 103, blood pressure is 158/96. HEENT: Extraocular movements are intact. Sclerae are anicteric. Oropharynx is clear. NECK: Supple. LUNGS: Clear. There is no respiratory distress. CARDIAC: Regular rate and rhythm. ABDOMEN: Soft and nontender. There is a left-sided flank incisional scar, which is partially dresse d at the most lateral aspect, there is a NICO drain present which has a small amount of bloody producti on, but no evidence of urine leakage. GENITOURINARY: The patient's Brewer catheter has been removed and he is voiding on his own by his own report and does not feel full. LABORATORY STUDIES: On 06/07/2017, white count was 11,100, hemoglobin 12.4, hematocrit of 36.1 and e ssentially unchanged from the day prior. There remains a left shift with 83% neutrophils. Serum seema mistries on 06/07/2017 show current potassium of 3.7, sodium 134, carbon dioxide 21. Estimated GFR i s 66. Blood urea nitrogen is 16 with a creatinine of 1.10. ASSESSMENT AND PLAN: 1. Postoperative ileus appears to be at least partial resolution with a bowel movement today, we rafita l advance his diet to clear liquids. 2. NICO drain, this is only producing a small amount of bloody output. The flank NICO drain produced 30 mL overnight and produce 45 yesterday. 3. Urine output is good at 650 mL overnight with a total of 2045 mL of urine output yesterday. The patient is voiding without need for Brewer catheter. 4. Pain control appears adequate. 5. Hypertension. We will go ahead and add the patient's normal metoprolol dose given the fact that he still has hypertension after current management, which is very similar to his home management exce pt for p.r.n. labetalol in place of metoprolol. Start him on his regular medication regimen since ey may be suitable for discharge soon.
[2017-06-07] MEDS ORDERED: Acetaminophen 650 MG/20.3 ML UDCUP PO PRN (13:41)
--- NOTE | 2017-06-07 22:33 | PDOC.PN ---
- Subjective Encounter Start Date: 06/07/17 Encounter Start Time: 14:30 Patient seen and examined. No new complaints. No overnight events. feels better. ambulating in hallways - Objective MAR Reviewed: Yes Vital Signs & Weight: Vital Signs (12 hours) Temp Pulse Resp BP BP Pulse Ox 06/07/17 21:59 96 164/104 H 06/07/17 21:09 98.5 F 91 18 158/101 H 96 06/07/17 15:27 98.6 F 92 16 167/96 H 97 06/07/17 11:48 98.3 F 93 14 171/96 H 98 Weight Weight 224 lb I&O: 06/06/17 06/07/17 06/08/17 06:59 06:59 06:59 Intake Total 2775 2275 1535 Output Total 2090 680 25 Balance 685 1595 1510 Result Diagrams: 06/08/17 05:02 06/08/17 05:02 Phys Exam - Physical Examination Constitutional: NAD Respiratory: no wheezing, no rhonchi Cardiovascular: RRR, no rub Gastrointestinal: soft, non-tender, no distention, positive bowel sounds Musculoskeletal: no edema Neurological: moves all 4 limbs Dx/Plan - Plan out of bed/ambulate, DVT proph w/heparin, DVT proph w/SCDs IMPRESSION: 1. Post op Ileus - improving 2. HTN - uncontrolled 3. Chronic Afib - Anticoag on hold due to surgery. 4. Obesity BMI 34.1 5. TIMOTHY/CKD 2 6. Abn LFTs prob due to Ileus 7. Elevated troponins due to elevated BP. No chest pain reported PLAN: * Cont Clonidine patch/Atenolol 25 mg BID/Cardizem to 180 mg BID * Cont PRN meds * On Clear liqd diet * Cont Heparin for DVT prophylaxis * Cont to monitor Review of Systems - Review of Systems Respiratory: negative: Cough, Dry, Shortness of Breath, Hemoptysis, SOB with Excertion, Pleuritic Pain, Sputum, Wheezing Cardiovascular: negative: chest pain, palpitations, orthopnea, paroxysmal nocturnal dyspnea, edema, light headedness - Medications/Allergies Allergies/Adverse Reactions: Allergies Allergy/AdvReac Type Severity Reaction Status Date / Time No Known Allergies Allergy Verified 05/22/17 13:47 Medications: Current Medications Acetaminophen (Tylenol Elixir) 1,000 mg PO Q6H PRN PRN Reason: Pain Stop: 06/08/17 14:45 Last Admin: 06/07/17 22:01 Dose: 1,000 mg Hydrocodone Bitart/Acetaminophen ([place] 5/325) 1 tab PO Q4H PRN PRN Reason: Mild Pain 0-3 Hydrocodone Bitart/Acetaminophen ([place] 5/325) 2 tab PO Q4H PRN PRN Reason: For Moderate Pain 4-6 Last Admin: 06/05/17 10:07 Dose: 2 tab Al Hydroxide/Mg Hydroxide (Maalox) 30 ml PO Q4H PRN PRN Reason: Indigestion Atenolol (Tenormin) 25 mg PO BID REPLACED BY [facility] Last Admin: 06/07/17 21:59 Dose: 25 mg Clonidine (Zmxjhamc-Sxd-0 Patch) 0.1 mg TD Q7D REPLACED BY [facility] Last Admin: 06/06/17 08:12 Dose: 0.1 mg Clonidine (Catapres) 0.1 mg PO Q4H PRN PRN Reason: Systolic BP > 180 Diltiazem HCl (Cardizem Cd) 180 mg PO BID REPLACED BY [facility] Last Admin: 06/07/17 21:59 Dose: 180 mg Diphenhydramine HCl (Benadryl) 25 mg PO Q3H PRN PRN Reason: Itching Diphenhydramine HCl (Benadryl) 25 mg IM Q3H PRN PRN Reason: Itching Diphenhydramine HCl (Benadryl) 25 mg IVP Q3H PRN PRN Reason: Itching Last Admin: 06/03/17 20:41 Dose: 25 mg Docusate Sodium (Colace) 100 mg PO BID REPLACED BY [facility] Last Admin: 06/07/17 21:59 Dose: 100 mg Heparin Sodium (Porcine) (Heparin) 5,000 units SC TID REPLACED BY [facility] Last Admin: 06/07/17 22:00 Dose: 5,000 units Hydralazine HCl (Apresoline) 10 mg SLOW IVP Q4H PRN PRN Reason: SBP Greater Than 180 Last Admin: 06/06/17 07:29 Dose: 10 mg Sodium Chloride (Normal Saline 0.9%) 1,000 mls @ 50 mls/hr IV .Q20H REPLACED BY [facility] Last Admin: 06/07/17 16:43 Dose: Not Given Labetalol HCl (Normodyne) 10 mg SLOW IVP Q4H PRN PRN Reason: Systolic BP > 180 Last Admin: 06/06/17 16:06 Dose: 2 ml Metoprolol Succinate (Toprol Xl) 50 mg PO DAILY REPLACED BY [facility] Mineral Oil/White Petrolatum (Eucerin Cream) 0 gm TOP PRN PRN PRN Reason: Itching Morphine Sulfate (Morphine) 2 mg SLOW IVP Q2H PRN PRN Reason: Mild-Moderate Pain (1-5) Morphine Sulfate/Sodium Chloride (Morphine 0.9% Nacl/Pf 5 Mg/5 M) 4 mg SLOW IVP Q2H PRN PRN Reason: Moderate to Severe Pain (6-10) Naloxone HCl (Narcan) 0.2 mg IV Q5MIN PRN PRN Reason: RR <=8 OR OBTUNDED/UNAROUSABLE Naloxone HCl (Narcan) 0.1 mg IVP Q15MIN PRN PRN Reason: URINARY RETENTION Ondansetron HCl (Zofran) 4 mg IVP Q6H PRN PRN Reason: Nausea/Vomiting Last Admin: 06/05/17 10:47 Dose: 4 mg Oxybutynin Chloride (Ditropan) 5 mg PO Q8H PRN PRN Reason: Bladder Spasms Pantoprazole Sodium (Protonix) 40 mg IVP Q12HR REPLACED BY [facility] Last Admin: 06/07/17 22:00 Dose: 40 mg Promethazine HCl (Phenergan) 12.5 mg IM Q4H PRN PRN Reason: Nausea Promethazine HCl (Phenergan Suppository) 25 mg SC Q4H PRN PRN Reason: Nausea/Vomiting Sodium Chloride (Flush - Normal Saline) 10 ml IVF PRN PRN PRN Reason: Saline Flush Last Admin: 06/07/17 22:00 Dose: 10 ml Tramadol HCl (Ultram) 50 mg PO Q6H PRN PRN Reason: Mild Pain 1-3 Last Admin: 06/03/17 10:14 Dose: 50 mg Tramadol HCl (Ultram) 100 mg PO Q6H PRN PRN Reason: Moderate Pain 4-6 Zolpidem Tartrate (Ambien) 5 mg PO HSPRN PRN PRN Reason: Insomnia
[2017-06-08 05:20] LABS: #Eosinphils 0.1 thou/uL (0.0-0.7); #Lymphocytes 0.9 thou/uL (1.20-3.40); #Monocytes 1.1 thou/uL (0.11-0.59); #Neutrophils 8.2 thou/uL (1.40-6.50); %Basophils 0.2 % (0.0-1.0); %Eosinophils 1.1 % (0.0-10.0); %Lymphocytes 8.6 % (21.0-51.0); %Neutrophils 79.2 % (42.0-75.0); Hemoglobin 12.3 g/dL (14.0-18.0); Mean Corpuscular HGB CONC 35.2 g/dL (32.0-36.0); Mean Corpuscular Hemoglobin 31.1 pg (27.0-31.0); Mean Corpuscular Volume 88.5 fl (80.0-94.0); Mean Platelet Volume 6.3 fL (7.4-10.4); Platelet Count 200 thou/uL (130-400); RBC Distribution Width 12.5 % (11.5-14.5); Red Blood Cell (RBC) Count 3.96 mill/uL (4.70-6.10); White Blood Cell (WBC) Count 10.3 thou/uL (4.8-10.8)
[2017-06-08 05:35] LABS: Anion Gap 11 mmol/L (10-20); BUN (Urea Nitrogen) 20 mg/dL (8.4-25.7); Calc. Creatinine Clearance 83 mL/min (70-130); Calcium 8.7 mg/dL (7.8-10.44); Carbon Dioxide 23 mmol/L (23-31); Chloride 102 mmol/L (98-107); Estimated GFR-MDRD 60; Glucose 100 mg/dL (80-115); Potassium 3.7 mmol/L (3.5-5.1); Sodium 132 mmol/L (136-145)
[2017-06-08 05:41] LABS: ALT (SGPT) 23 U/L (8-55); AST (SGOT) 24 U/L (5-34); Albumin 3.2 g/dL (3.4-4.8); Alkaline Phosphatase 76 U/L (40-150); Bilirubin, Direct 0.8 mg/dL (0.1-0.3); Bilirubin, Total 1.6 mg/dL (0.2-1.2); Protein, Total 6.1 g/dL (5.8-8.1)
[2017-06-08] MEDS: Sodium Chloride 0.9% 1,000 ML IV SCH (06:36)
[2017-06-08] MEDS: Pantoprazole 40 MG VIAL IVP SCH ×2 (08:52→20:34)
[2017-06-08] MEDS: Heparin 5,000 UNITS/ML VIAL SC SCH (08:53)
[2017-06-08] MEDS: Docusate 100 MG CAP PO SCH ×2 (08:54→20:32)
[2017-06-08] MEDS: Atenolol 25 MG TAB PO SCH ×2 (08:54→20:32)
--- NOTE | 2017-06-08 19:52 | CON ---
DATE OF HOSPITAL ADMISSION: 06/02/2017 DATE OF PROGRESS NOTE: 06/08/2017 BRIEF HISTORY: Mr. Ernesto Mccormick is a very pleasant 67-year-old white male with a history of lef t renal mass who underwent a left open partial nephrectomy on 06/02/[address] Pike. Patient had a clear cell renal cell carcinoma. He had negative surgical margins. The patient has a postoperati ve left flank drain which was left in place at the operation and has a history of atrial fibrillation for which he was previously on Pradaxa. He had bleeding into his drainage tube yesterday, although only a small amount, it was grossly bloody. We left the drain overnight, still has a little bit of b loodiness, some of this is probably coming in relation to current heparin use which we suspended this afternoon. PHYSICAL EXAMINATION: VITAL SIGNS: Temperature is 98.9, pulse is down to 94 today, respiratory rate 20, O2 saturation 99% on room air, blood pressure is 128/101. HEAD, EARS, EYES, NOSE, AND THROAT: Extraocular movements are intact. Sclerae are anicteric. Oroph arynx is clear. NECK: Supple. LUNGS: Clear to auscultation bilaterally. CARDIAC: There is an irregularly irregular rhythm present. No murmur, rub, or gallop heard. LUNGS: Clear to auscultation bilaterally. ABDOMEN: Soft and nontender with normal bowel sounds on auscultation. On left flank, there is a fla nk incision with a NICO drain, this has grossly bloody fluid, but has only drained about 35 mL overnigh t. There is a possibility that this is a tube at this point, but the continuing production of b lood raises suspicion of low-level active bleeding. Patient has breaux consistent with recent heparin administration. GENITOURINARY: Brewer catheter has been discontinued. Phallus is without lesion. Testes are without lesion. There is no evidence of bleeding into the scrotal area. SKIN: Skin survey, there is a left flank bruising and ecchymosis present also in the right arm. EXTREMITIES: Within normal limits. No clubbing, cyanosis, or edema. LABORATORY STUDIES: White blood cell count 10.3 down from 11.1 yesterday, hemoglobin 12.3 with hemat ocrit of 35.1. Chemistry panel shows the patient's blood urea nitrogen at 20 with a creatinine of 1. 20, slightly up from yesterday. ASSESSMENT AND PLAN: 1. Atrial fibrillation with need for anticoagulant restart due to the issue of recent partial nephre ctomy. We held off on starting Pradaxa yesterday; there is still some bloody fluid in the NICO drain, which we think is secondary to the concurrent use of heparin, it has really been very minimal bleedin g and to the tube only about 35 mL overnight, we are going to discontinue the heparin, continue his d eep vein thrombosis prophylaxis with HUNG hose and sequential compression devices and start Pradaxa 75 mg p.o. b.i.d., which is initiating dose. 2. NICO drain. We will leave this in at least overnight for observation to see if there is any bleedi ng when restarting on Pradaxa. Over 35 minutes of subsequent evaluation and consultation time was spent with this patient.
[2017-06-08] MEDS: Zolpidem Tartrate 5 MG TAB PO PRN (20:32)
--- NOTE | 2017-06-08 20:32 | PDOC.PN ---
- Subjective Encounter Start Date: 06/08/17 Encounter Start Time: 14:20 Patient seen and examined. No new complaints. No overnight events. Tolerating regular diet - Objective MAR Reviewed: Yes Vital Signs & Weight: Vital Signs (12 hours) Temp Pulse Resp BP BP Pulse Ox 06/08/17 20:00 100.5 F H 99 18 158/84 H 97 06/08/17 15:50 98.0 F 93 20 153/93 H 99 06/08/17 11:55 98.9 F 94 20 128/101 H 99 06/08/17 09:00 110 H 20 139/96 H 99 Weight Weight 224 lb I&O: 06/07/17 06/08/17 06/09/17 06:59 06:59 06:59 Intake Total 2275 2035 1140 Output Total 680 35 15 Balance 1595 2000 1125 Result Diagrams: 06/08/17 05:02 06/08/17 05:02 Phys Exam - Physical Examination Constitutional: NAD Respiratory: no wheezing, no rhonchi Cardiovascular: no significant murmur, irregular Gastrointestinal: soft, non-tender, positive bowel sounds Musculoskeletal: no edema Dx/Plan - Plan IMPRESSION: 1. Post op Ileus - improved 2. HTN - better controlled 3. Chronic Afib - Anticoag on hold due to surgery. 4. Obesity BMI 34.1 5. TIMOTHY/CKD 2 6. Abn LFTs prob due to Ileus 7. Elevated troponins due to elevated BP. No chest pain reported PLAN: * DC Clonidine patch * Cont Atenolol 25 mg BID * Change Cardizem to 360 mg daily (home dose) * Cont PRN meds * Pradaxa restarted * AM labs Review of Systems - Review of Systems Respiratory: negative: Cough, Dry, Shortness of Breath, Hemoptysis, SOB with Excertion, Pleuritic Pain, Sputum, Wheezing Cardiovascular: negative: chest pain, palpitations, orthopnea, paroxysmal nocturnal dyspnea, edema, light headedness - Medications/Allergies Allergies/Adverse Reactions: Allergies Allergy/AdvReac Type Severity Reaction Status Date / Time No Known Allergies Allergy Verified 05/22/17 13:47 Medications: Current Medications Hydrocodone Bitart/Acetaminophen ([place] 5/325) 1 tab PO Q4H PRN PRN Reason: Mild Pain 0-3 Hydrocodone Bitart/Acetaminophen ([place] 5/325) 2 tab PO Q4H PRN PRN Reason: For Moderate Pain 4-6 Last Admin: 06/05/17 10:07 Dose: 2 tab Al Hydroxide/Mg Hydroxide (Maalox) 30 ml PO Q4H PRN PRN Reason: Indigestion Atenolol (Tenormin) 25 mg PO BID REPLACED BY [facility] Last Admin: 06/08/17 08:54 Dose: 25 mg Clonidine (Xzcazvpt-Hxb-1 Patch) 0.1 mg TD Q7D REPLACED BY [facility] Last Admin: 06/06/17 08:12 Dose: 0.1 mg Clonidine (Catapres) 0.1 mg PO Q4H PRN PRN Reason: Systolic BP > 180 Dabigatran (Pradaxa) 75 mg PO BID REPLACED BY [facility] Diltiazem HCl (Cardizem Cd) 180 mg PO BID REPLACED BY [facility] Last Admin: 06/08/17 08:54 Dose: 180 mg Diphenhydramine HCl (Benadryl) 25 mg PO Q3H PRN PRN Reason: Itching Diphenhydramine HCl (Benadryl) 25 mg IM Q3H PRN PRN Reason: Itching Diphenhydramine HCl (Benadryl) 25 mg IVP Q3H PRN PRN Reason: Itching Last Admin: 06/03/17 20:41 Dose: 25 mg Docusate Sodium (Colace) 100 mg PO BID REPLACED BY [facility] Last Admin: 06/08/17 08:54 Dose: 100 mg Hydralazine HCl (Apresoline) 10 mg SLOW IVP Q4H PRN PRN Reason: SBP Greater Than 180 Last Admin: 06/06/17 07:29 Dose: 10 mg Labetalol HCl (Normodyne) 10 mg SLOW IVP Q4H PRN PRN Reason: Systolic BP > 180 Last Admin: 06/06/17 16:06 Dose: 2 ml Metoprolol Succinate (Toprol Xl) 50 mg PO DAILY REPLACED BY [facility] Last Admin: 06/08/17 08:55 Dose: 50 mg Mineral Oil/White Petrolatum (Eucerin Cream) 0 gm TOP PRN PRN PRN Reason: Itching Morphine Sulfate (Morphine) 2 mg SLOW IVP Q2H PRN PRN Reason: Mild-Moderate Pain (1-5) Morphine Sulfate/Sodium Chloride (Morphine 0.9% Nacl/Pf 5 Mg/5 M) 4 mg SLOW IVP Q2H PRN PRN Reason: Moderate to Severe Pain (6-10) Naloxone HCl (Narcan) 0.2 mg IV Q5MIN PRN PRN Reason: RR <=8 OR OBTUNDED/UNAROUSABLE Naloxone HCl (Narcan) 0.1 mg IVP Q15MIN PRN PRN Reason: URINARY RETENTION Ondansetron HCl (Zofran) 4 mg IVP Q6H PRN PRN Reason: Nausea/Vomiting Last Admin: 06/05/17 10:47 Dose: 4 mg Oxybutynin Chloride (Ditropan) 5 mg PO Q8H PRN PRN Reason: Bladder Spasms Pantoprazole Sodium (Protonix) 40 mg IVP Q12HR [facility] Last Admin: 06/08/17 08:52 Dose: 40 mg Promethazine HCl (Phenergan) 12.5 mg IM Q4H PRN PRN Reason: Nausea Promethazine HCl (Phenergan Suppository) 25 mg [place] Q4H PRN PRN Reason: Nausea/Vomiting Sodium Chloride (Flush - Normal Saline) 10 ml IVF PRN PRN PRN Reason: Saline Flush Last Admin: 06/07/17 22:00 Dose: 10 ml Tramadol HCl (Ultram) 50 mg PO Q6H PRN PRN Reason: Mild Pain 1-3 Last Admin: 06/03/17 10:14 Dose: 50 mg Tramadol HCl (Ultram) 100 mg PO Q6H PRN PRN Reason: Moderate Pain 4-6 Zolpidem Tartrate (Ambien) 5 mg PO HSPRN PRN PRN Reason: Insomnia
[2017-06-09 05:52] LABS: Anion Gap 16 mmol/L (10-20); BUN (Urea Nitrogen) 20 mg/dL (8.4-25.7); Calc. Creatinine Clearance 74 mL/min (70-130); Calcium 8.8 mg/dL (7.8-10.44); Carbon Dioxide 19 mmol/L (23-31); Chloride 101 mmol/L (98-107); Estimated GFR-MDRD 52; Glucose 97 mg/dL (80-115); Magnesium 1.9 mg/dL (1.6-2.6); Potassium 3.3 mmol/L (3.5-5.1); Sodium 133 mmol/L (136-145)
[2017-06-09 06:48] LABS: Band 12 % (5-11); Hemoglobin 12.9 g/dL (14.0-18.0); Lymphocytes 2 % (21-51); MDiff Complete? YES; Mean Corpuscular HGB CONC 34.5 g/dL (32.0-36.0); Mean Corpuscular Hemoglobin 30.4 pg (27.0-31.0); Mean Corpuscular Volume 88.2 fl (80.0-94.0); Mean Platelet Volume 6.2 fL (7.4-10.4); Monocytes 7 % (0-10); Neutrophil 79 % (42-75); Platelet Count 254 thou/uL (130-400); RBC Distribution Width 12.4 % (11.5-14.5); Red Blood Cell (RBC) Count 4.23 mill/uL (4.70-6.10); White Blood Cell (WBC) Count 23.2 thou/uL (4.8-10.8)
[2017-06-09] MEDS: Atenolol 25 MG TAB PO SCH ×2 (08:47→21:57)
[2017-06-09] MEDS: Docusate 100 MG CAP PO SCH ×2 (08:48→21:26)
[2017-06-09 10:08] LABS: Bilirubin Small (Negative); Blood, Urine Moderate (Negative); Clarity CLEAR (Clear); Glucose, Urine (Dipstick) Negative (Negative); Leukocyte Negative (Negative); Nitrite Negative (Negative); Protein, Urine (Dipstick) 30 mg/dL (Neg-Trace); Specific Gravity, Urine 1.028 (1.002-1.036); pH, Urine 5.5 (5.0-9.0)
[2017-06-09 10:14] LABS: Bacteria/HPF None Seen HPF (None Seen); Hyaline Casts/LPF 0-3 HYALINE CAST LPF (0-3 Hyaline); Pathc Cast-AUWi Flag 0.13 (0-2.49); Squamous Epithelial None Seen HPF (0-3)
--- NOTE | 2017-06-09 10:45 | RAD ---
CHEST 2 VIEWS: Date: 06/09/17 HISTORY: Fever. COMPARISON: Chest 1 view dated 06/02/17. FINDINGS: There is a new density projecting over the right mid lung just lateral to the right hilum. Remainder of the lungs are clear. IMPRESSION: New opacity in the right mid lung may reflect pneumonia. Follow-up recommended. POS: [facility]
[2017-06-09] MEDS ORDERED: Vancomycin HCl 25 MG/ML Oral PO SCH (14:00)
--- NOTE | 2017-06-09 17:36 | CON ---
DATE OF CONSULTATION: 06/09/2017 REASON FOR CONSULTATION: Sepsis. HISTORY OF PRESENT ILLNESS: A 67-year-old patient who has a history of hypertension, chronic atrial fibrillation on Pradaxa, and nephrolithiasis, who underwent a routine imaging studying which identified a mass in the left kidney. The patient had a possibility of renal cell cancer confirmed by a renal CT protocol scan and underwent resection of the involved area of kidney by Dr. Pike on 06/02/2017. The operative note was reviewed. The patient received preoperative antimicrobial therapy and the kidney was dissected. Partial nephrectomy completed. The patient has some bleeding postoperatively through the operative site and the NICO drain tubes and then yesterday developed inflammatory changes associated with diarrhea, leukocytosis and low grade fever. A C. diff in stool has turned positive. Currently, he is awake. His is in the room with him. He denies headaches, no visual symptoms, sore throat, odynophagia, dysphagia, no cough or sputum production, dyspnea, no chest pain, no abdominal pain. Voiding without difficulty. No joint symptoms or skin disorder. No neurological symptoms. PAST MEDICAL HISTORY: Obesity; hypertension; nephrolithiasis; renal cell cancer , recently resected; atrial fibrillation, on Pradaxa. ALLERGIES: None. CURRENT MEDICATIONS: Hydrocodone, atenolol, clonidine, Pradaxa, Cardizem, Benadryl, Colace, Toprol, Normodyne p.r.n., morphine, Protonix, Phenergan, tramadol, zolpidem. FAMILY HISTORY: Noncontributory. SOCIAL HISTORY: Never a smoker. PHYSICAL EXAMINATION: VITAL SIGNS: T-max 100.8, blood pressure 140/70, pulse 99, respirations 18, O2 sat 97%. SKIN: With left flank incision with paulina, mild erythema, some blood oozing from the incision. NICO drain has been removed recently. No Brewer catheter. Patient has had all the peripheral IV access is removed. HEENT: Ocular movements are conjugate. Oral cavity normal. Numerous teeth in place with some decay. NECK: Supple, no jugular venous distention. LUNGS: With symmetric clear breath sounds. HEART: S1, S2 with irregular rate. No significant murmurs. ABDOMEN: Slightly distended. Bowel sounds are increased. No tenderness. No ascites. No bladder distention. GENITAL: Normal. EXTREMITIES: No joint inflammatory activity noted. Able to move all extremities equally. Pulses 1+ in dorsalis pedis. Plantar responses are flexure. No clonus. NEUROLOGIC: Cognitive function appears to be intact. LABORATORY DATA: White cell count up to 23,000, hemoglobin 12, platelets 254 with 79% neutrophils. Creatinine is 1.36, bilirubin 0.8. Transaminases and alkaline phosphatase normal, albumin 3.2. Urinalysis with 4-6 WBCs. Microbiology with C. diff antigen and toxin positive. Urine culture no growth at 48 hours. Chest x-ray with no findings of significance. ASSESSMENT: 1. Renal cell cancer status post partial nephrectomy. 2. Low-grade fever with leukocytosis and diarrhea of acute onset with positive Clostridium difficile antigen and toxin in stool. DISCUSSION: There is no evidence of other source of inflammatory process except for possible operative site inflammatory process or hematoma formation, but this appears to be okay except for the external bleeding. Hematoma formation can sometimes cause low-grade temperature elevation and leukocytosis, but in the face of the acute onset of diarrhea as well as neutrophilia and positive C. diff, I believe this is the likely culprit here. We will start oral vancomycin and continue for 10 days and then discontinue. The patient has about 20% risk of recrudescence of C. diff colitis, in that case, we will need a tapering dose of vancomycin after repeat treatment. MTDD
[2017-06-09] MEDS: Vancomycin HCl 25 MG/ML Oral PO SCH ×2 (17:38→21:57)
--- NOTE | 2017-06-09 19:03 | CON ---
DATE OF CONSULTATION: 06/09/2017 CHIEF COMPLAINT: 1. Status post left open partial nephrectomy on 06/02/[address] Pike. 2. He will need for anticoagulation due to history of atrial fibrillation, restarted on Pradaxa over night. 3. Left flank drain with minimal output. 4. New onset of leukocytosis in association with liquid diarrhea x6. BRIEF HISTORY: Mr. Ernesto Mccormick is a very pleasant 67-year-old white male with a history of lef t renal mass who underwent a left open partial nephrectomy on 06/02/[address] Pike. The patient had a clear cell renal cell carcinoma and had negative surgical margins. The patient also has comor bid history of atrial fibrillation, for which he was previously on Pradaxa. The patient had some blo saw drainage into his drain tube yesterday and we did discontinue the heparin that he was on in addit ion to starting him back on his Pradaxa. The patient has had only minimal amount of bloody output in to the flank drain overnight. Overnight, the patient did develop an elevation of his white count with approximate doubling of that later developed liquid stool and had approximately 6 liquid stool bowel movements. PHYSICAL EXAMINATION: GENERAL: This is a pleasant white male, in no apparent distress. He is awake, alert, and GCS 15. VITAL SIGNS: The patient was febrile to 100.8 Fahrenheit yesterday and also developed tachycardia ye sterday. The patient's temperature has remained normal in the last 2 tests with a current temperatur e of 99.4. Pulse is 85, respirations 16, O2 saturation 95% on room air, blood pressure 147/71. LUNGS: Clear to auscultation bilaterally. CARDIAC: There is an irregularly irregular rhythm. ABDOMEN: Soft and nontender. There is a left flank surgical incisional scar which is still stapled. A NICO drain is present which is put out a minimal amount overnight. Recorded NICO output was 35 mL fo r the entire 24-hour period yesterday and has been only 25 mL today. Urine output is good with no co mplaints on the patient's part. LABORATORY STUDIES: White count ene to 23.2 thousand yesterday from 10.3 thousand on 06/08/2017, he moglobin is 12.9 with a hematocrit of 37.1, minor increase overnight. Serum chemistry showed the pat ient's potassium level decreased to 3.3 and the blood urea nitrogen at 20 with a current creatinine o f 1.36, slightly increasing with the patient's diarrhea episodes. A liquid stool sample was sent for testing and is positive for C. diff antigen and toxins. ASSESSMENT AND PLAN: 1. Left flank clear cell type renal cell carcinoma. The patient will follow up with Dr. Glendy elmore. 2. Anticoagulation concerns patient was restarted on Pradaxa at 75 mg b.i.d. yesterday. He did not have any evidence of gross bleeding and his NICO drain is essentially and we decide to remove the NICO drain today as this is not putting out any significant amount of contents. There is some bloody s uction output in evidence. This does not appear to be new bleeding. 3. Diarrhea with elevation of white count and Clostridium difficile antigen and toxin positive stool . The patient has apparent Clostridium difficile colitis and we treated appropriately. Dr. Peraza co nsulting and hospitalist service also consulting. This probably appropriately covered by oral plus IV antibiotics. Over 35 minutes consultation time was spent on evaluation and assessment for this patient today.
--- NOTE | 2017-06-09 20:18 | PDOC.PN ---
- Subjective Encounter Start Date: 06/09/17 Encounter Start Time: 16:00 - Objective Vital Signs & Weight: Vital Signs (12 hours) Temp Pulse Resp BP BP Pulse Ox 06/09/17 15:07 98.9 F 92 18 148/79 H 97 06/09/17 11:18 99.4 F 85 16 147/71 H 95 06/09/17 08:48 99.1 F 99 18 97 06/09/17 08:47 108 H 148/76 H Weight Weight 224 lb I&O: 06/08/17 06/09/17 06/10/17 06:59 06:59 06:59 Intake Total 2034 1140 1125 Output Total 35 25 Balance 1999 1115 1125 Result Diagrams: 06/09/17 05:00 06/09/17 05:00 Dx/Plan - Plan * . Review of Systems - Medications/Allergies Allergies/Adverse Reactions: Allergies Allergy/AdvReac Type Severity Reaction Status Date / Time No Known Allergies Allergy Verified 05/22/17 13:47 Medications: Current Medications Hydrocodone Bitart/Acetaminophen ([place] 5/325) 1 tab PO Q4H PRN PRN Reason: Mild Pain 0-3 Hydrocodone Bitart/Acetaminophen ([place] 5/325) 2 tab PO Q4H PRN PRN Reason: For Moderate Pain 4-6 Last Admin: 06/05/17 10:07 Dose: 2 tab Al Hydroxide/Mg Hydroxide (Maalox) 30 ml PO Q4H PRN PRN Reason: Indigestion Atenolol (Tenormin) 25 mg PO BID [facility] Last Admin: 06/09/17 08:47 Dose: 25 mg Clonidine (Catapres) 0.1 mg PO Q4H PRN PRN Reason: Systolic BP > 180 Dabigatran (Pradaxa) 75 mg PO BID [facility] Last Admin: 06/09/17 08:47 Dose: 75 mg Diltiazem HCl (Cardizem Cd) 360 mg PO DAILY [facility] Last Admin: 06/09/17 08:48 Dose: 360 mg Diphenhydramine HCl (Benadryl) 25 mg PO Q3H PRN PRN Reason: Itching Diphenhydramine HCl (Benadryl) 25 mg IM Q3H PRN PRN Reason: Itching Diphenhydramine HCl (Benadryl) 25 mg IVP Q3H PRN PRN Reason: Itching Last Admin: 06/03/17 20:41 Dose: 25 mg Docusate Sodium (Colace) 100 mg PO BID [facility] Last Admin: 06/09/17 08:48 Dose: Not Given Hydralazine HCl (Apresoline) 10 mg SLOW IVP Q4H PRN PRN Reason: SBP Greater Than 180 Last Admin: 06/06/17 07:29 Dose: 10 mg Labetalol HCl (Normodyne) 10 mg SLOW IVP Q4H PRN PRN Reason: Systolic BP > 180 Last Admin: 06/06/17 16:06 Dose: 2 ml Metoprolol Succinate (Toprol Xl) 50 mg PO DAILY [facility] Last Admin: 06/09/17 08:48 Dose: 50 mg Mineral Oil/White Petrolatum (Eucerin Cream) 0 gm TOP PRN PRN PRN Reason: Itching Morphine Sulfate (Morphine) 2 mg SLOW IVP Q2H PRN PRN Reason: Mild-Moderate Pain (1-5) Morphine Sulfate/Sodium Chloride (Morphine 0.9% Nacl/Pf 5 Mg/5 M) 4 mg SLOW IVP Q2H PRN PRN Reason: Moderate to Severe Pain (6-10) Naloxone HCl (Narcan) 0.2 mg IV Q5MIN PRN PRN Reason: RR <=8 OR OBTUNDED/UNAROUSABLE Naloxone HCl (Narcan) 0.1 mg IVP Q15MIN PRN PRN Reason: URINARY RETENTION Ondansetron HCl (Zofran) 4 mg IVP Q6H PRN PRN Reason: Nausea/Vomiting Last Admin: 06/05/17 10:47 Dose: 4 mg Oxybutynin Chloride (Ditropan) 5 mg PO Q8H PRN PRN Reason: Bladder Spasms Promethazine HCl (Phenergan) 12.5 mg IM Q4H PRN PRN Reason: Nausea Promethazine HCl (Phenergan Suppository) 25 mg AL Q4H PRN PRN Reason: Nausea/Vomiting Sodium Chloride (Flush - Normal Saline) 10 ml IVF PRN PRN PRN Reason: Saline Flush Last Admin: 06/07/17 22:00 Dose: 10 ml Tramadol HCl (Ultram) 50 mg PO Q6H PRN PRN Reason: Mild Pain 1-3 Last Admin: 06/03/17 10:14 Dose: 50 mg Tramadol HCl (Ultram) 100 mg PO Q6H PRN PRN Reason: Moderate Pain 4-6 Vancomycin HCl (First Vancomycin) 125 mg PO QID [facility] Last Admin: 06/09/17 17:38 Dose: 125 mg Zolpidem Tartrate (Ambien) 5 mg PO HSPRN PRN PRN Reason: Insomnia Last Admin: 06/08/17 20:32 Dose: 5 mg
[2017-06-09] MEDS: Zolpidem Tartrate 5 MG TAB PO PRN (21:57)
[2017-06-10 06:33] LABS: ALT (SGPT) 28 U/L (8-55); AST (SGOT) 25 U/L (5-34); Albumin 2.9 g/dL (3.4-4.8); Alkaline Phosphatase 100 U/L (40-150); Bilirubin, Direct 0.7 mg/dL (0.1-0.3); Bilirubin, Total 1.2 mg/dL (0.2-1.2); Protein, Total 5.8 g/dL (5.8-8.1)
[2017-06-10 06:40] LABS: Anion Gap 12 mmol/L (10-20); BUN (Urea Nitrogen) 19 mg/dL (8.4-25.7); Calc. Creatinine Clearance 78 mL/min (70-130); Calcium 8.3 mg/dL (7.8-10.44); Carbon Dioxide 21 mmol/L (23-31); Chloride 100 mmol/L (98-107); Estimated GFR-MDRD 56; Glucose 101 mg/dL (80-115); Sodium 130 mmol/L (136-145)
[2017-06-10 07:26] LABS: Hemoglobin 11.8 g/dL (14.0-18.0); Mean Corpuscular HGB CONC 34.4 g/dL (32.0-36.0); Mean Corpuscular Hemoglobin 30.5 pg (27.0-31.0); Mean Corpuscular Volume 88.9 fl (80.0-94.0); Mean Platelet Volume 6.7 fL (7.4-10.4); Platelet Count 221 thou/uL (130-400); RBC Distribution Width 12.4 % (11.5-14.5); Red Blood Cell (RBC) Count 3.88 mill/uL (4.70-6.10); White Blood Cell (WBC) Count 22.9 thou/uL (4.8-10.8)
[2017-06-10 07:28] LABS: Band 32 % (5-11); Eosinophils 1 % (0-10); Lymphocytes 4 % (21-51); MDiff Complete? YES; Monocytes 6 % (0-10); Neutrophil 57 % (42-75); PLT Morphology Comment Appears Adequate; Toxic Granulation SLIGHT
[2017-06-10] MEDS ORDERED: Potassium Chloride 20 MEQ TAB PO SCH (08:00)
[2017-06-10] MEDS: Vancomycin HCl 25 MG/ML Oral PO SCH ×4 (09:39→20:51)
[2017-06-10] MEDS: Potassium Chloride 20 MEQ TAB PO SCH ×3 (09:40→17:39)
[2017-06-10] MEDS: Magnesium Chloride 64 MG TAB PO SCH ×2 (09:40→20:51)
[2017-06-10] MEDS: Docusate 100 MG CAP PO SCH ×2 (09:41→20:50)
[2017-06-10] MEDS: Atenolol 25 MG TAB PO SCH ×2 (09:41→20:49)
--- NOTE | 2017-06-10 10:11 | PQF ---
CLINICAL DOCUMENTATION IMPROVEMENT CLARIFICATION FORM: ICD-10 Updated PLEASE DO AN ADDENDUM TO THE PROGRESS NOTE WITH ANY DOCUMENTATION UPDATES OR ADDITIONS AND CARRY THROUGH TO DC SUMMARY. THANK YOU. DATE: 06/10 ATTN : DR. ADRIÁN ATKINS Please exercise your independent, professional judgment in responding to the clarification form. Clinical indicators are provided on the bottom of this form for your review. Please check appropriate box(s): [ ] Sepsis due to: (Pna, UTI, gangrenous gall bladder, etc.) [ ] SIRS due to non-infectious process (please specify etiology) [ ] with organ dysfunction [ ] without organ dysfunction [ ] Severe sepsis with acute organ dysfunction of: (Examples: respiratory failure, encephalopathy, acute kidney failure, other) [ ] Localized infection without sepsis [ ] Other diagnosis [ ] Unable to determine For continuity of documentation, please document condition throughout progress notes and discharge summary. Thank You. CLINICAL INDICATORS - SIGNS / SYMPTOMS / LABS INFECTIOUS DISEASE CONSULT 06/09: REASON FOR CONSULT: SEPSIS WBC: 10.3 - 23.2 (06/02 - 06/10) BANDS: 12 - 32% ( 06/09 & ) T: 100.8 (06/09) PA: 108 - 115 (06/09 & ) RISK FACTORS: RECENT SURGERY (06/02) C DIFF DIARRHEA (06/09) TIMOTHY TREATMENTS: INFECTIOUS DX CONSULT (06/09) PO VANCOMYCIN (06/09 - PRESENT) IVF (NS W/20 MEQ KCL 06/10) THANK YOU! Sherry (This form is maintained as a part of the permanent medical record) 2014 [employer]. All Rights Reserved Sherry Garrison, RN, BSN [email or web address] Office: [phone] [facility]
[2017-06-10] MEDS: NS 0.9% w/ 20 MEQ KCL 1,000 ML/1,000 ML BAG IV SCH (11:04)
[2017-06-10 15:30] LABS: Hemoglobin 12.6 g/dL (14.0-18.0)
[2017-06-10 15:48] LABS: Potassium 3.4 mmol/L (3.5-5.1)
--- NOTE | 2017-06-10 16:53 | PRG ---
DATE OF SERVICE: 06/10/2017 SUBJECTIVE: The patient has somewhat of a poor appetite, wants to go home. PHYSICAL EXAMINATION: VITAL SIGNS: Stable; however, T-max of 100.8, yesterday 97.7, heart rate 115, 16, 98, 142/82. I's and O's, he has had 3 loose bowel movements. ABDOMEN: Soft. Incision is intact, there is some serosanguineous discharge from the NICO site, dressing reinforced. ABDOMEN: Soft, nondistended. EXTREMITIES: No cyanosis, clubbing or edema or calf tenderness. LABORATORY DATA: Yesterday's white count is 23,000, today is 22,000, hemoglobin 12.9 yesterday, 11.8 yesterday, platelet 221, creatinine is 1.28. Sodium 130, potassium 3.0. C. diff antigen is positive. I appreciate Infectious Disease and Hospitalist's assistance. Notes from Dr. Tello reviewed over the last few days. IMPRESSION AND PLAN: 1. Mr. Mccormick is a 67-year-old male status post open partial nephrectomy. 2. History of Clostridium difficile. 3. History of atrial fibrillation. Pradaxa has been reinitiated by Dr. Tello 06/08/2017 evening. His H&H subsequently has been stable; however this morning his hemoglobin is 11.8, which some serosanguineous discharge from his NICO output. I will recheck another H&H this afternoon, if decrease in H&H, will hold Pradaxa. I did speak with the Hospitalist regarding coordination of care. He has no IV access, reinitiation of IV access to treat for IV fluids 0.9. Replacement of potassium discussed. Infectious Disease consult reviewed, p.o. vancomycin was provided. Patient informed as he has low-grade fever and persistent leukocytosis of concern, I do recommend the patient be observed until his H&H is stable on Pradaxa, afebrile for a minimum 24-36 hours. [facility]
--- NOTE | 2017-06-10 18:22 | PDOC.PN ---
- Subjective Encounter Start Date: 06/10/17 Encounter Start Time: 15:00 Patient seen and examined. Diarrhea improving. No overnight events - Objective MAR Reviewed: Yes Vital Signs & Weight: Vital Signs (12 hours) Temp Pulse Resp BP BP Pulse Ox 06/10/17 15:28 98.6 F 97 16 138/81 98 06/10/17 11:29 98.9 F 100 18 132/84 97 06/10/17 08:00 97.7 F 108 H 18 06/10/17 07:17 97.7 F 115 H 16 149/82 H 98 Weight Weight 224 lb I&O: 06/09/17 06/10/17 06/11/17 06:59 06:59 06:59 Intake Total 1140 2325 Output Total 25 Balance 1115 2325 Result Diagrams: 06/10/17 15:23 06/10/17 15:23 Phys Exam - Physical Examination Constitutional: NAD Respiratory: no wheezing, no rhonchi Cardiovascular: RRR, no rub Gastrointestinal: soft, non-tender, positive bowel sounds Musculoskeletal: no edema Neurological: moves all 4 limbs Dx/Plan - Plan DVT proph w/SCDs IMPRESSION: 1. Sepsis due to C diff colitis 2. HTN - better controlled 3. Chronic Afib - Anticoag restarted 4. Obesity BMI 34.1 5. TIMOTHY/CKD 2 - improving 6. Abn LFTs prob due to Ileus 7. Elevated troponins due to elevated BP. No chest pain reported 8. Post op Ileus - improved PLAN: * Replace Potassium * AM labs * DC Clonidine patch * Cont Atenolol 25 mg BID with Cardizem to 360 mg daily * Cont PRN meds * AM labs Review of Systems - Review of Systems Respiratory: negative: Cough, Dry, Shortness of Breath, Hemoptysis, SOB with Excertion, Pleuritic Pain, Sputum, Wheezing Cardiovascular: negative: chest pain, palpitations, orthopnea, paroxysmal nocturnal dyspnea, edema, light headedness - Medications/Allergies Allergies/Adverse Reactions: Allergies Allergy/AdvReac Type Severity Reaction Status Date / Time No Known Allergies Allergy Verified 05/22/17 13:47 Medications: Current Medications Hydrocodone Bitart/Acetaminophen ([place] 5/325) 1 tab PO Q4H PRN PRN Reason: Mild Pain 0-3 Hydrocodone Bitart/Acetaminophen ([place] 5/325) 2 tab PO Q4H PRN PRN Reason: For Moderate Pain 4-6 Last Admin: 06/05/17 10:07 Dose: 2 tab Al Hydroxide/Mg Hydroxide (Maalox) 30 ml PO Q4H PRN PRN Reason: Indigestion Atenolol (Tenormin) 25 mg PO BID [facility] Last Admin: 06/10/17 09:41 Dose: 25 mg Clonidine (Catapres) 0.1 mg PO Q4H PRN PRN Reason: Systolic BP > 180 Dabigatran (Pradaxa) 75 mg PO BID [facility] Last Admin: 06/10/17 09:40 Dose: 75 mg Diltiazem HCl (Cardizem Cd) 360 mg PO DAILY [facility] Last Admin: 06/10/17 09:41 Dose: 360 mg Diphenhydramine HCl (Benadryl) 25 mg PO Q3H PRN PRN Reason: Itching Diphenhydramine HCl (Benadryl) 25 mg IM Q3H PRN PRN Reason: Itching Diphenhydramine HCl (Benadryl) 25 mg IVP Q3H PRN PRN Reason: Itching Last Admin: 06/03/17 20:41 Dose: 25 mg Docusate Sodium (Colace) 100 mg PO BID [facility] Last Admin: 06/10/17 09:41 Dose: Not Given Hydralazine HCl (Apresoline) 10 mg SLOW IVP Q4H PRN PRN Reason: SBP Greater Than 180 Last Admin: 06/06/17 07:29 Dose: 10 mg Potassium Chloride/Sodium Chloride (Ns 0.9% W/ 20 Meq Kcl) 1,000 ml in 1,000 mls @ 75 mls/hr IV .[id number] [facility] Last Admin: 06/10/17 11:04 Dose: 1,000 mls Labetalol HCl (Normodyne) 10 mg SLOW IVP Q4H PRN PRN Reason: Systolic BP > 180 Last Admin: 06/06/17 16:06 Dose: 2 ml Magnesium Chloride (Slow-Mag) 64 mg PO BID [facility] Last Admin: 06/10/17 09:40 Dose: 64 mg Metoprolol Succinate (Toprol Xl) 50 mg PO DAILY [facility] Last Admin: 06/10/17 09:40 Dose: 50 mg Mineral Oil/White Petrolatum (Eucerin Cream) 0 gm TOP PRN PRN PRN Reason: Itching Morphine Sulfate (Morphine) 2 mg SLOW IVP Q2H PRN PRN Reason: Mild-Moderate Pain (1-5) Morphine Sulfate/Sodium Chloride (Morphine 0.9% Nacl/Pf 5 Mg/5 M) 4 mg SLOW IVP Q2H PRN PRN Reason: Moderate to Severe Pain (6-10) Naloxone HCl (Narcan) 0.2 mg IV Q5MIN PRN PRN Reason: RR <=8 OR OBTUNDED/UNAROUSABLE Naloxone HCl (Narcan) 0.1 mg IVP Q15MIN PRN PRN Reason: URINARY RETENTION Ondansetron HCl (Zofran) 4 mg IVP Q6H PRN PRN Reason: Nausea/Vomiting Last Admin: 06/05/17 10:47 Dose: 4 mg Promethazine HCl (Phenergan) 12.5 mg IM Q4H PRN PRN Reason: Nausea Promethazine HCl (Phenergan Suppository) 25 mg MA Q4H PRN PRN Reason: Nausea/Vomiting Sodium Chloride (Flush - Normal Saline) 10 ml IVF PRN PRN PRN Reason: Saline Flush Last Admin: 06/07/17 22:00 Dose: 10 ml Tramadol HCl (Ultram) 50 mg PO Q6H PRN PRN Reason: Mild Pain 1-3 Last Admin: 06/03/17 10:14 Dose: 50 mg Tramadol HCl (Ultram) 100 mg PO Q6H PRN PRN Reason: Moderate Pain 4-6 Vancomycin HCl (First Vancomycin) 125 mg PO QID [facility] Last Admin: 06/10/17 17:40 Dose: 125 mg Zolpidem Tartrate (Ambien) 5 mg PO HSPRN PRN PRN Reason: Insomnia Last Admin: 06/09/17 21:57 Dose: 5 mg
[2017-06-10] MEDS: traMADol HCl 50 MG TAB PO PRN (20:49)
[2017-06-10] MEDS: Zolpidem Tartrate 5 MG TAB PO PRN (20:50)
[2017-06-11] MEDS: NS 0.9% w/ 20 MEQ KCL 1,000 ML/1,000 ML BAG IV SCH ×2 (00:05→12:59)
[2017-06-11 05:44] LABS: Anion Gap 11 mmol/L (10-20); BUN (Urea Nitrogen) 18 mg/dL (8.4-25.7); Calc. Creatinine Clearance 90 mL/min (70-130); Calcium 8.4 mg/dL (7.8-10.44); Carbon Dioxide 20 mmol/L (23-31); Chloride 107 mmol/L (98-107); Estimated GFR-MDRD 66; Glucose 97 mg/dL (80-115); Magnesium 1.8 mg/dL (1.6-2.6); Potassium 3.5 mmol/L (3.5-5.1); Sodium 134 mmol/L (136-145)
[2017-06-11 06:12] LABS: Band 13 % (5-11); Eosinophils 1 % (0-10); Hemoglobin 11.7 g/dL (14.0-18.0); Lymphocytes 3 % (21-51); MDiff Complete? YES; Mean Corpuscular Hemoglobin 30.2 pg (27.0-31.0); Mean Corpuscular Volume 88.8 fl (80.0-94.0); Mean Platelet Volume 6.4 fL (7.4-10.4); Monocytes 3 % (0-10); Neutrophil 80 % (42-75); Platelet Count 242 thou/uL (130-400); RBC Distribution Width 12.3 % (11.5-14.5); Red Blood Cell (RBC) Count 3.88 mill/uL (4.70-6.10); White Blood Cell (WBC) Count 23.2 thou/uL (4.8-10.8)
--- NOTE | 2017-06-11 07:30 | PRG ---
DATE OF SERVICE: 06/11/2017 SUBJECTIVE: The patient continues to have loose bowel movements, 5 over the last 24 hours. Denies chest pain, shortness of breath. PHYSICAL EXAMINATION: VITAL SIGNS: T-max of 100.8 more than 36 hours ago, T-current is 97.9, 99, 96% , 138/91. ABDOMEN: Incision has some reactive erythema with no pustular discharge. There is some subcutaneous ecchymosis stable. The dressing is mild to moderately saturated however, there is no active oozing appreciated on morning rounds. ABDOMEN: Soft, nontender, nondistended. EXTREMITIES: No cyanosis, clubbing or edema or calf tenderness is appreciated. SIGNIFICANT LABORATORY DATA: White count today is 23,000, hemoglobin is relatively stable at 11.7, 80 segs. Sodium is 134, potassium 3.5, creatinine 1.1, magnesium 1.8. Chest x-ray 06/09/2017 demonstrates right middle lobe pneumonia. IMPRESSION AND PLAN: 1. Mr. Mccormick is a 67-year-old male postop day #9 status post left open partial nephrectomy. 2. Ileus, resolved. 3. Right middle lobe pneumonia. 4. History of fever, currently afebrile for 36 hours. 5. History of atrial fibrillation, Pradaxa restarted POD #6 H&H is relatively stable. 6. Persistent leukocytosis. 7. Persistent diarrhea. 8. Hypokalemia secondary to chronic diarrhea. PLAN: I do recommend the patient continue inhouse observation due to multiple issues as above. I would like to see his WBC count trend downward prior to discharge. His fever has resolved. He is advised regarding aggressive incentive spirometry. On oral vancomycin per Infectious Disease; however, I would like Infectious Disease input regarding treatment of his pneumonia as he has persistent leukocytosis and suspect pulmonary source. will contact Dr. Peraza today regarding his recommendations. IV fluids have been restarted to replace his potassium and correct his hyponatremia, which has resolved. I do expect he will need supplementation due to ongoing diarrhea. The patient is informed regarding indications for ongoing observation. We will follow his CBC. Recheck H&H yesterday afternoon which appears to be stable. His Pradaxa was restarted few days ago, will continue to monitor his CBC daily. The patient agrees to current plan of management. Aggressive IS and ambulation out of bed is advised. [facility]
[2017-06-11] MEDS: Vancomycin HCl 25 MG/ML Oral PO SCH ×4 (09:28→21:14)
[2017-06-11] MEDS: Atenolol 25 MG TAB PO SCH ×2 (09:28→21:17)
[2017-06-11] MEDS: Potassium Chloride 20 MEQ TAB PO SCH ×2 (09:28→17:39)
[2017-06-11] MEDS: Docusate 100 MG CAP PO SCH ×2 (09:29→21:13)
[2017-06-11] MEDS: Magnesium Chloride 64 MG TAB PO SCH ×2 (09:29→21:13)
--- NOTE | 2017-06-11 10:49 | PDOC.PN ---
- Subjective Encounter Start Date: 06/11/17 Encounter Start Time: 10:00 Patient seen and examined. No new complaints. No overnight events. No CP/SOB/ Cough/Diarrhea. - Objective MAR Reviewed: Yes Vital Signs & Weight: Vital Signs (12 hours) Temp Pulse Resp BP Pulse Ox 06/11/17 08:10 98.6 F 102 H 14 148/83 H 97 06/11/17 04:00 97.9 F 99 18 138/91 H 96 06/11/17 00:00 98.9 F 87 17 136/83 96 Weight Weight 224 lb I&O: 06/10/17 06/11/17 06/12/17 06:59 06:59 06:59 Intake Total 2325 2550 Balance 2325 2550 Result Diagrams: 06/11/17 04:33 06/11/17 04:33 Phys Exam - Physical Examination Constitutional: NAD Respiratory: no wheezing, no rales, no rhonchi, clear to auscultation bilateral Cardiovascular: RRR, no rub Gastrointestinal: soft, non-tender, positive bowel sounds Musculoskeletal: no edema Neurological: moves all 4 limbs Dx/Plan - Plan IMPRESSION: 1. Sepsis due to C diff colitis - on Vancomycin 2. HTN - better controlled 3. Chronic Afib - Anticoag restarted 4. Obesity BMI 34.1 5. TIMOTHY/CKD 2 - improving 6. Abn LFTs prob due to Ileus 7. Elevated troponins due to elevated BP. No chest pain reported 8. Post op Ileus - improved 7. Abn CXR - unlikely to be pneumonia - I d/w Dr Peraza. PLAN: * Cont IVF * AM labs * Cont Atenolol 25 mg BID/Cardizem to 360 mg daily * Cont PRN meds * AM labs * Cont PO Vancomycin Review of Systems - Review of Systems Respiratory: negative: Cough, Dry, Shortness of Breath, Hemoptysis, SOB with Excertion, Pleuritic Pain, Sputum, Wheezing Cardiovascular: negative: chest pain, palpitations, orthopnea, paroxysmal nocturnal dyspnea, edema, light headedness - Medications/Allergies Allergies/Adverse Reactions: Allergies Allergy/AdvReac Type Severity Reaction Status Date / Time No Known Allergies Allergy Verified 05/22/17 13:47 Medications: Current Medications Hydrocodone Bitart/Acetaminophen ([place] 5/325) 1 tab PO Q4H PRN PRN Reason: Mild Pain 0-3 Hydrocodone Bitart/Acetaminophen ([place] 5/325) 2 tab PO Q4H PRN PRN Reason: For Moderate Pain 4-6 Last Admin: 06/05/17 10:07 Dose: 2 tab Al Hydroxide/Mg Hydroxide (Maalox) 30 ml PO Q4H PRN PRN Reason: Indigestion Atenolol (Tenormin) 25 mg PO BID [facility] Last Admin: 06/11/17 09:28 Dose: 25 mg Clonidine (Catapres) 0.1 mg PO Q4H PRN PRN Reason: Systolic BP > 180 Dabigatran (Pradaxa) 75 mg PO BID [facility] Last Admin: 06/11/17 09:29 Dose: 75 mg Diltiazem HCl (Cardizem Cd) 360 mg PO DAILY [facility] Last Admin: 06/11/17 09:28 Dose: 360 mg Diphenhydramine HCl (Benadryl) 25 mg PO Q3H PRN PRN Reason: Itching Diphenhydramine HCl (Benadryl) 25 mg IM Q3H PRN PRN Reason: Itching Diphenhydramine HCl (Benadryl) 25 mg IVP Q3H PRN PRN Reason: Itching Last Admin: 06/03/17 20:41 Dose: 25 mg Docusate Sodium (Colace) 100 mg PO BID [facility] Last Admin: 06/11/17 09:29 Dose: Not Given Hydralazine HCl (Apresoline) 10 mg SLOW IVP Q4H PRN PRN Reason: SBP Greater Than 180 Last Admin: 06/06/17 07:29 Dose: 10 mg Potassium Chloride/Sodium Chloride (Ns 0.9% W/ 20 Meq Kcl) 1,000 ml in 1,000 mls @ 75 mls/hr IV .[id number] [facility] Last Admin: 06/11/17 00:05 Dose: 1,000 mls Labetalol HCl (Normodyne) 10 mg SLOW IVP Q4H PRN PRN Reason: Systolic BP > 180 Last Admin: 06/06/17 16:06 Dose: 2 ml Magnesium Chloride (Slow-Mag) 64 mg PO BID [facility] Last Admin: 06/11/17 09:29 Dose: 64 mg Metoprolol Succinate (Toprol Xl) 50 mg PO DAILY [facility] Last Admin: 06/11/17 09:28 Dose: 50 mg Mineral Oil/White Petrolatum (Eucerin Cream) 0 gm TOP PRN PRN PRN Reason: Itching Morphine Sulfate (Morphine) 2 mg SLOW IVP Q2H PRN PRN Reason: Mild-Moderate Pain (1-5) Morphine Sulfate/Sodium Chloride (Morphine 0.9% Nacl/Pf 5 Mg/5 M) 4 mg SLOW IVP Q2H PRN PRN Reason: Moderate to Severe Pain (6-10) Naloxone HCl (Narcan) 0.2 mg IV Q5MIN PRN PRN Reason: RR <=8 OR OBTUNDED/UNAROUSABLE Naloxone HCl (Narcan) 0.1 mg IVP Q15MIN PRN PRN Reason: URINARY RETENTION Ondansetron HCl (Zofran) 4 mg IVP Q6H PRN PRN Reason: Nausea/Vomiting Last Admin: 06/05/17 10:47 Dose: 4 mg Potassium Chloride (K-Dur) 20 meq PO BID[facility] Last Admin: 06/11/17 09:28 Dose: 20 meq Promethazine HCl (Phenergan) 12.5 mg IM Q4H PRN PRN Reason: Nausea Promethazine HCl (Phenergan Suppository) 25 mg NM Q4H PRN PRN Reason: Nausea/Vomiting Sodium Chloride (Flush - Normal Saline) 10 ml IVF PRN PRN PRN Reason: Saline Flush Last Admin: 06/07/17 22:00 Dose: 10 ml Tramadol HCl (Ultram) 50 mg PO Q6H PRN PRN Reason: Mild Pain 1-3 Last Admin: 06/10/17 20:49 Dose: 50 mg Tramadol HCl (Ultram) 100 mg PO Q6H PRN PRN Reason: Moderate Pain 4-6 Vancomycin HCl (First Vancomycin) 125 mg PO QID [facility] Last Admin: 06/11/17 09:28 Dose: 125 mg Zolpidem Tartrate (Ambien) 5 mg PO HSPRN PRN PRN Reason: Insomnia Last Admin: 06/10/17 20:50 Dose: 5 mg
[2017-06-11] MEDS: Zolpidem Tartrate 5 MG TAB PO PRN (21:17)
[2017-06-12] MEDS: NS 0.9% w/ 20 MEQ KCL 1,000 ML/1,000 ML BAG IV SCH (01:45)
[2017-06-12 05:39] LABS: Anion Gap 10 mmol/L (10-20); BUN (Urea Nitrogen) 13 mg/dL (8.4-25.7); Calc. Creatinine Clearance 96 mL/min (70-130); Calcium 8.2 mg/dL (7.8-10.44); Carbon Dioxide 20 mmol/L (23-31); Chloride 109 mmol/L (98-107); Estimated GFR-MDRD 71; Glucose 92 mg/dL (80-115); Potassium 3.4 mmol/L (3.5-5.1); Sodium 136 mmol/L (136-145)
[2017-06-12 06:27] LABS: Band 5 % (5-11); Hemoglobin 11.2 g/dL (14.0-18.0); Lymphocytes 13 % (21-51); MDiff Complete? YES; Mean Corpuscular HGB CONC 33.8 g/dL (32.0-36.0); Mean Platelet Volume 6.4 fL (7.4-10.4); Monocytes 5 % (0-10); Neutrophil 75 % (42-75); PLT Morphology Comment Appears Adequate; Platelet Count 261 thou/uL (130-400); RBC Distribution Width 12.3 % (11.5-14.5); RBC Morphology Normal; Reactive Lymphocytes 2 % (0-10); Red Blood Cell (RBC) Count 3.74 mill/uL (4.70-6.10); White Blood Cell (WBC) Count 11.3 thou/uL (4.8-10.8)
--- NOTE | 2017-06-12 08:00 | PRG ---
DATE OF SERVICE: 06/12/2017 SUBJECTIVE: The patient is feeling well, per nursing staff, bowel movements are more formed and less loose. Denies nausea, vomiting, fever, chest pain, shortness of breath. OBJECTIVE: VITAL SIGNS: T-current is 98.1, 93, 15, 98%, blood pressure variable from 136- 147 systolic, diastolic variable from 83-92. ABDOMEN: Incision demonstrates some serous discharge on the dressing site. This is minimal to mild. There is no active pustular discharge and expression of the wound. Staple line does demonstrate some erythema, which is stable. There is no crepitus. Abdomen is soft, nontender, nondistended. EXTREMITIES: No cyanosis, clubbing or edema, no calf tenderness is appreciated. PERTINENT LABORATORY DATA: White count decreased from 23,000-11,300, hemoglobin stable at 11.2, platelet 261, bandemia and left shift has resolved. Potassium 3.4, creatinine is 1.04. IMPRESSION AND PLAN: A 67-year-old male postop day #10 status post left open partial nephrectomy. 1. History of ileus, resolved. 2. Right middle lobe pneumonia, asymptomatic. 3. History of fever, secondary to Clostridium difficile colitis, resolved. 4. History of atrial fibrillation on Pradaxa, started on postop day #6, H&H stable. 5. Leukocytosis, resolved. 6. Diarrhea secondary to Clostridium difficile, improving. 7. Hypokalemia secondary to chronic diarrhea. PLAN: As his leukocytosis resolved, afebrile for more than 48 hours, the patient is clear from surgical perspective to be discharged home. He will be discharged with [place] 5/325 #50, vancomycin for 7 more days per Infectious Disease consultation notes. I will discuss with Hospitalist Service regarding supplementation of potassium, blood pressure medical therapy adjunct as his blood pressure has been somewhat labile. He has close follow up with Dr. Pike this Friday for staple removal. Once I coordinate with the Hospitalist regarding discharge medication, I do anticipate patient to be discharged this afternoon. The patient informed. Addendum: Patient cleared by medical service to be discharged. Blood pressure, potassium medication is been provided. He will continue his Pradaxa 75 mg one by mouth twice a day. This may be increased to his regular dose pending follow- up with . 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 [facility]
[2017-06-12] MEDS: Docusate 100 MG CAP PO SCH (08:42)
[2017-06-12] MEDS: Potassium Chloride 20 MEQ TAB PO SCH (08:42)
[2017-06-12] MEDS: Atenolol 25 MG TAB PO SCH (08:42)
[2017-06-12] MEDS: Magnesium Chloride 64 MG TAB PO SCH (08:43)
[2017-06-12 08:47] VITALS: TEMP 98.2
[2017-06-12] MEDS: Vancomycin HCl 25 MG/ML Oral PO SCH ×2 (08:47→13:04)
[2017-06-12 12:37] VITALS: BP 148/87
--- NOTE | 2017-06-12 22:48 | PDOC.PN ---
- Subjective Encounter Start Date: 06/12/17 Encounter Start Time: 10:20 Patient seen and examined. No new complaints. No overnight events. Diarrhea resolved. Tolerating regular diet - Objective MAR Reviewed: Yes Vital Signs & Weight: Vital Signs (12 hours) Temp Pulse Resp BP Pulse Ox 06/12/17 12:25 98.2 F 84 16 148/87 H 99 Weight Weight 224 lb I&O: 06/11/17 06/12/17 06/13/17 06:59 06:59 06:59 Intake Total 2550 2960 Balance 2550 2960 Result Diagrams: 06/12/17 04:26 06/12/17 04:26 Phys Exam - Physical Examination Constitutional: NAD Respiratory: no wheezing, no rhonchi Cardiovascular: RRR, no rub Gastrointestinal: soft, non-tender, positive bowel sounds Musculoskeletal: no edema Neurological: moves all 4 limbs Dx/Plan - Plan DVT proph w/SCDs IMPRESSION: 1. Sepsis due to C diff colitis - on Vancomycin 2. HTN - better controlled 3. Chronic Afib - Anticoag restarted 4. Obesity BMI 34.1 5. TIMOTHY/CKD 2 - improving 6. Abn LFTs prob due to Ileus 7. Elevated troponins due to elevated BP. No chest pain reported 8. Post op Ileus - improved 7. Abn CXR - unlikely to be pneumonia - I d/w Dr Peraza. PLAN: * PO Vancomycin for total 10 days * Atenolol dose 25 mg BID * Advised patient to follow Dr Corea due to ind. troponins. Review of Systems - Review of Systems Respiratory: negative: Cough, Dry, Shortness of Breath, Hemoptysis, SOB with Excertion, Pleuritic Pain, Sputum, Wheezing Cardiovascular: negative: chest pain, palpitations, orthopnea, paroxysmal nocturnal dyspnea, edema, light headedness - Medications/Allergies Allergies/Adverse Reactions: Allergies Allergy/AdvReac Type Severity Reaction Status Date / Time No Known Allergies Allergy Verified 05/22/17 13:47
--- NOTE | 2017-06-13 11:57 | DIS ---
DATE OF ADMISSION: 06/02/2017 DATE OF DISCHARGE: 06/12/2017 ATTENDING PHYSICIAN: Dr. Angel Pike. DISCHARGING PHYSICIAN: Destiney Singer D.O. ADMITTING DIAGNOSIS: Left renal mass. DISCHARGE DIAGNOSES: 1. Left renal cell carcinoma, clear cell type. 2. Clostridium difficile colitis. 3. Asymptomatic pneumonia. 4. Postoperative ileus. PROCEDURE PERFORMED WHILE INPATIENT. Left open partial nephrectomy via the retroperitoneal approach. CONSULTATIONS OBTAINED WHILE INPATIENT: 1. Hospitalist Service. 2. Dr. Peraza with Infectious Disease. BRIEF HISTORY OF PRESENT ILLNESS: Mr. Mccormick is a 67-year-old white male who presented to me with a left renal mass in the lower pole, measuring approximately 4.3 cm. We discussed open partial neph rectomy and due to the significance of near invasion into the collecting system, I had recommended op en approach as opposed to a laparoscopic approach. Risks and benefits were discussed and the patient agreed to proceed forward. The full H&P can be found in the scanned portions of the [facility] system . HOSPITAL COURSE: After his surgery (please see operative note for details), the patient was admitted to the hospital with an epidural NICO drain and Brewer catheter. His first stay was relatively unevent ful and he did require increasing his epidural. He had some issues with hypertension postoperatively , which required some mild manipulation of his medications. He continued to have labile blood pressu res, which were somewhat controlled with the use of his epidural; however, on postoperative day #3, h is epidural was discontinued as he was not requiring much of dosing. Once his epidural was out, his pain seemed to be well controlled with oral pain medication; however, his blood pressure increased si gnificantly. [facility] [place] [facility] was consulted for assistance with blood pressure management and they did notice that he had a troponin leak; however, the patient was asymptomatic and did not require any in tervention or cardiology intervention as the troponin did trend back down; however, the patient start ed to become somewhat nauseated and had a distended abdomen, KUB demonstrated multiple air fluid leve ls and distended bowels consistent with a postoperative ileus. The patient's diet was changed from a regular diet back to n.p.o. He remained n.p.o. for approximately 2 days and ambulated at which poin t his ileus began to resolve. During this time, his NICO which had initially put out relatively large amount in the 200 range, had decreased only about 25-50 mL A NICO for creatinine was sent with a highe r output which came back consistent with serum, indicating no evidence of urine leak. The patient's kidney function also had some elevation with a creatinine peaking around 1.82 after his surgery, whic h subsequently decreased back down to normal at 1.1-1.2 at time of discharge. After the patient's il eus resolved, he began having liquid stools with elevation in his white blood cell count. C. diff an tigen was sent and came back positive for C. diff colitis. Dr. Peraza was consulted who recommended s tarting p.o. vancomycin. During this time, a chest x-ray had also demonstrated the patient having a right middle lobe consolidation concerning for an early pneumonia; however, the patient remained in a symptomatic and did not have a significant cough. Dr. Peraza did not feel that it was necessary to tr eat this as it may also represent atelectasis due to poor inspiratory effort. The patient was advise d regarding aggressive incentive spirometry and ambulation, which he was able to perform. The patien t was slowly able to go back to a regular diet, which he tolerated well. His pain was controlled. H is catheter had been removed at the time of his epidural removal and the patient had been voiding nor cherry since then. His incision appeared to have a little bit of erythema, but did not have any drain age or any significant concerns for infection. The NICO drain was removed. The patient's blood pressu re was able to be controlled and his Pradaxa was resumed on postoperative day #5 without any signific ant drop in his hemoglobin and hematocrit. He is not on his normal dose, but at a reduced dose and t he decision to go back to his full dose will probably be done as an outpatient or upon visit with his motorcycle repairer. The patient did remain in atrial fibrillation during his entire hospital stay. At th e time of his discharge, the patient's diarrhea had decreased. He was tolerating a regular diet. Hi s pain was controlled with p.o. pain medications alone. He had been voiding spontaneously, had been able to ambulate and was on the correct antibiotics for his C. diff colitis without any evidence of p rogression or worsening pneumonia. He was cleared for discharge and sent home on 06/12/2017. DISPOSITION: Discharge to home. DISCHARGE CONDITION: Stable. DISCHARGE MEDICATIONS: Include resuming all of his home medications including his Pradaxa and reduce d dose of 75 mg twice a day. In addition, he was sent home with [place] 5/325 mg 1-2 tabs p.o. q.4 [place] rs p.r.n. pain, Colace 100 mg p.o. b.i.d. and vancomycin 1 gram p.o. twice a day. In addition, he wa s also supplemented with magnesium and potassium as they were low secondary to his diarrhea. DISCHARGE INSTRUCTIONS: Include no heavy lifting over 20 pounds, no strenuous activities. No submer ging underwater, showers were okay. He should avoid driving for at least 2 weeks and was to notify f or fevers over 101, shortness of breath, chest pain, separation or drainage from his incision, signif icant redness, worsening pain, shortness of breath, dizziness or any other concerning signs or sympto ms the patient may experience. His follow up is scheduled with me for Friday06/17/2017 for evaluat ion for staple removal. He was also encouraged to see his motorcycle repairer and primary care physician in the next 1-2 weeks after discharge for addressing his blood pressure and anticoagulation.
== END 2017-06-12 13:56 | disposition home or self-care (01) | DRG 656 ==
LOC: SURG A 06-02 06:05
PROVIDERS: ADMIT Urology; ATTEND Urology
PROC: 0TB10ZZ Excision of Left Kidney, Open Approach (ICD-10-PCS; principal; 2017-06-02)
PROC: 3E0T3BZ Introduction of Anesthetic Agent into Peripheral Nerves and Plexi, Percutaneous Approach (ICD-10-PCS; 2017-06-02)
PROC: 0W9F30Z Drainage of Abdominal Wall with Drainage Device, Percutaneous Approach (ICD-10-PCS; 2017-06-02)
DX: C64.2 Malignant neoplasm of left kidney, except renal pelvis (principal); J18.9 Pneumonia, unspecified organism; A41.89 Other specified sepsis; N17.9 Acute kidney failure, unspecified; I48.2 Chronic atrial fibrillation; A04.72 Enterocolitis due to Clostridium difficile, not specified as recurrent; K56.7 Ileus, unspecified; E87.1 Hypo-osmolality and hyponatremia; E66.9 Obesity, unspecified; E87.6 Hypokalemia; K52.9 Noninfective gastroenteritis and colitis, unspecified; Z68.34 Body mass index [BMI] 34.0-34.9, adult; I12.9 Hypertensive chronic kidney disease with stage 1 through stage 4 chronic kidney disease, or unspecified chronic kidney disease; N18.2 Chronic kidney disease, stage 2 (mild)
CPT/HCPCS: 36415; 71010; 71020; 74020; 80048; 80053; 80076; 81001; 82570; 83690; 83735; 84100; 84484; 85007; 85025; 85027; 86850; 86900; 86901; 87324; 87449; 88304; 88307; 88331; C9113; J0131; J0360; J0694; J1100; J1200; J1644; J1956; J2001; J2250; J2270; J2405; J2704; J3010; J3480; J7042; J7050; P9045

== ENCOUNTER 2017-05-30 09:25 | Outpatient (CLI) | payer MEDICARE | END 2017-05-30 09:26 | disposition home or self-care (01) | LOC: LABBT 09:25 | PROVIDERS: ATTEND Urology | DX: Z01.812 Encounter for preprocedural laboratory examination (principal); N28.89 Other specified disorders of kidney and ureter | CPT/HCPCS: 86850; 86900; 86901 ==

== ENCOUNTER 2017-10-14 10:13 | Outpatient (CLI) | payer MEDICARE ==
[~2017-10-14 10:13] MED LIST: Iopamidol 370 76% 100 ML VIAL ONE
[2017-10-14 11:18] LABS: ALT (SGPT) 16 U/L (8-55); AST (SGOT) 18 U/L (5-34); Albumin 4.4 g/dL (3.4-4.8); Alkaline Phosphatase 87 U/L (40-150); Anion Gap 13 mmol/L (10-20); BUN (Urea Nitrogen) 15 mg/dL (8.4-25.7); Bilirubin, Total 1.5 mg/dL (0.2-1.2); Calc. Creatinine Clearance 0 mL/min (70-130); Calcium 9.6 mg/dL (7.8-10.44); Carbon Dioxide 24 mmol/L (23-31); Chloride 105 mmol/L (98-107); Estimated GFR-MDRD 58; Globulin 3.6 g/dL (2.4-3.5); Glucose 111 mg/dL (80-115); Potassium 4.2 mmol/L (3.5-5.1); Sodium 138 mmol/L (136-145)
--- NOTE | 2017-10-14 12:36 | RAD ---
PA AND LATERAL CHEST: History: Kidney cancer. Follow up. FINDINGS: Comparison is made with exam 06-09-17. The heart size is normal. The aorta is tortuous. The lungs are expanded without focal areas of consol idation or pneumothorax. No pleural effusions. No acute osseous abnormalities are seen. IMPRESSION: No radiographic evidence of acute cardiopulmonary process. POS: [facility]
--- NOTE | 2017-10-14 13:10 | CT ---
CT ABDOMEN WITH AND WITHOUT IV CONTRAST: Date: 10/14/17 HISTORY: Adenocarcinoma of the left kidney. Status post partial left nephrectomy. COMPARISON: 03/19/17. FINDINGS: There are interval postop changes of partial left nephrectomy with removal of the previously noted le ft renal masses. There is dystrophic calcification in the inferior aspect of the left kidney with adj acent soft tissue scarring in the adjacent fat and abdominal wall. No enhancing renal masses are iden tified on either side. No calculi are seen in the kidneys and visualized portions of urinary bladder. No hydroureteronephrosis is seen. The lung bases are clear. A tiny calcified gallstone is again seen. The liver, pancreas, and adrenal glands are normal. The spleen measured 15.0 cm on the previous exam and measures 14.0 cm on the curre nt study. Vascular calcifications are present without evidence of aneurysmal dilatation of the abdom inal aorta. No free air, free fluid, or lymphadenopathy is seen. A few colonic diverticula are presen t. There are degenerative changes in the spine. No osteolytic or osteoblastic lesions are seen. IMPRESSION: 1. Interval postop changes of left partial nephrectomy since 03/19/17. 2. Cholelithiasis. 3. Splenomegaly. POS: [facility]
[2017-10-15 14:33] LABS: Bilirubin Negative (Negative); Blood, Urine Trace (Negative); Clarity CLEAR (Clear); Glucose, Urine (Dipstick) Negative (Negative); Leukocyte Negative (Negative); Nitrite Negative (Negative); Protein, Urine (Dipstick) Negative (Neg-Trace); Specific Gravity, Urine 1.017 (1.002-1.036); Urobilinogen 0.2 mg/dL (0.2-1.0)
[2017-10-15 14:42] LABS: Bacteria/HPF None Seen HPF (None Seen); Hyaline Casts/LPF 0-3 HYALINE CAST LPF (0-3 Hyaline); Squamous Epithelial 0-3 HPF (0-3); WBC/HPF 0-3 HPF (0-3)
== END 2017-10-14 10:14 | disposition home or self-care (01) ==
LOC: SCSCT 10:13
PROVIDERS: ATTEND Urology
DX: C64.2 Malignant neoplasm of left kidney, except renal pelvis (principal); R16.1 Splenomegaly, not elsewhere classified; K80.20 Calculus of gallbladder without cholecystitis without obstruction; Z98.890 Other specified postprocedural states
CPT/HCPCS: 36415; 71046; 74150; 80053; 81001

== ENCOUNTER 2018-11-10 09:30 | Outpatient (CLI) | payer MEDICARE ==
--- NOTE | 2018-11-10 10:55 | CT ---
CT of abdomen and pelvis with and without contrast. Reference is made to 10/14/2017 exam Clinical history: Clear cell adenocarcinoma left kidney. Prior partial left nephrectomy. Imaging foll ow-up. Findings: Redemonstration of postoperative findings of partial left nephrectomy with associated postoperative h yperdensity and adjacent scarring/fat necrosis of the left posterior lateral intra-abdominal fat. A similar-appearing heterogeneous enhancement pattern of the postoperative inferior residual left kidne y is demonstrated, and there are punctate parenchymal hypodensities of the left kidney, similar in appearance, too small to definitively characterize. No interval hydronephrosis. Right kidney is stabl e, with punctate hypoattenuation, too small to further characterize. No adrenal mass. Prominent volume of the spleen is again seen. Evidence of hepatic steatosis. Cholelithiasis is redemonstrated. Bowel is incompletely assessed without enteric contrast. No acute abnormality at the imaged lung bases. Scattered osseous degenerative changes. IMPRESSION: Stable postoperative appearance of the left kidney. Transcribed Date/Time: 11/10/2018 11:11 AM
== END 2018-11-10 09:31 | disposition home or self-care (01) ==
LOC: SCSCT 09:30
PROVIDERS: ATTEND Urology
DX: C64.2 Malignant neoplasm of left kidney, except renal pelvis (principal); Z90.5 Acquired absence of kidney
CPT/HCPCS: 74170; 82565; Q9967

== ENCOUNTER 2018-11-17 10:43 | Outpatient (CLI) | payer MEDICARE ==
[2018-11-17 11:58] LABS: Anion Gap 13 mmol/L (10-20); BUN (Urea Nitrogen) 20 mg/dL (8.4-25.7); Calc. Creatinine Clearance 0 mL/min (70-130); Calcium 9.8 mg/dL (7.8-10.44); Carbon Dioxide 22 mmol/L (23-31); Chloride 108 mmol/L (98-107); Estimated GFR-MDRD 52; Glucose 75 mg/dL (80-115); Potassium 4.2 mmol/L (3.5-5.1); Sodium 139 mmol/L (136-145)
--- NOTE | 2018-11-17 12:35 | RAD ---
EXAM: CHEST TWO VIEWS: 11/17/18 HISTORY: Clear cell adenocarcinoma left kidney, C64.2. COMPARISON: 10/14/17. FINDINGS: Evidence for small hiatal hernia. Heart size is normal. No evidence for pneumonia, edema, or other ac [place] process. IMPRESSION: Stable appearing chest. No evidence for metastasis. POS: OFF
== END 2018-11-17 10:44 | disposition home or self-care (01) ==
LOC: SCSRAD 10:43
PROVIDERS: ATTEND Urology
DX: C64.2 Malignant neoplasm of left kidney, except renal pelvis (principal)
CPT/HCPCS: 36415; 71046; 80048

== ENCOUNTER 2020-02-14 10:53 | Outpatient (CLI) | payer MEDICARE ==
--- NOTE | 2020-02-14 11:17 | RAD ---
EXAM: Two views chest PROVIDED CLINICAL HISTORY: Clear-cell carcinoma of left kidney COMPARISON: 11/17/2018 FINDINGS: Cardiac and mediastinal silhouette appears within normal limits. Lungs appear free of significant opa city. No pleural fluid or pneumothorax apparent. Vascular calcification is noted involving the aortic arch. IMPRESSION: No evidence for an acute cardiopulmonary process.
== END 2020-02-14 10:54 | disposition home or self-care (01) ==
LOC: SCSRAD 10:53
PROVIDERS: ATTEND Urology
DX: C64.2 Malignant neoplasm of left kidney, except renal pelvis (principal)
CPT/HCPCS: 71046

== ENCOUNTER 2020-03-13 09:09 | Outpatient (CLI) | payer MEDICARE ==
--- NOTE | 2020-03-13 13:17 | CT ---
ABDOMEN CT WITH AND WITHOUT CONTRAST PELVIC CT WITH AND WITHOUT CONTRAST: HISTORY: Left kidney clear cell adenocarcinoma. Follow-up imaging. COMPARISON: 11/10/2018, 10/14/2017, 03/19/2017. TECHNIQUE: Abdomen and pelvic CT is performed with and without contrast following urogram protocol. Coronal refo rmatted images are submitted for interpretation. FINDINGS: Lung bases: Dependent atelectatic changes. No masses or nodules. Heart: Normal heart size. No significant pericardial fluid. There are coronary artery calcifications. Aorta: Normal caliber. Minimal atherosclerosis. No periaortic fat stranding. Liver: Appropriate enhancement. No enhancing masses. Spleen: Appropriate enhancement. Pancreas: Appropriate enhancement. Adrenal glands: Symmetric enhancement. Lymph nodes: Stable upper normal periportal lymph node. Portal vein: Patent. Gallbladder: Cholelithiasis, without evidence of cholecystitis. Noncontrast: Nonobstructive punctate calculi in the right renal pelvis measuring 0.1 cm. There is int rinsic calcification along the inferior pole of the left kidney. Contrast: Appropriate enhancement of the left and right kidney. No evidence of a solid enhancing mass in the left or right kidney. Two separate 0.7 cm hypodensities in the left kidney and two 0.8 cm hypodensities in the right kidney are presumed to be cysts. Size limits evaluation. Delayed: Symmetric excretion into the intrarenal collecting systems. No filling defects. Mesentery: No mass, nephropathy, free air or free fluid. Alimentary canal: Limited evaluation due to lack of oral contrast administration. No evidence of libertad l obstruction. The ileocecal junction is normal. Normal caliber appendix. Scattered fecal material in a nondistended/nondilated colon. CT PELVIS: Reproductive organs and pelvis: Mild enlarged prostate gland. Urinary bladder: Mild mass effect upon the urinary bladder due to enlarged prostate gland. Contrast o pacifies the urinary bladder. Mucosal prominence likely due to inadequate distention. No lytic or blastic lesions in the osseous structures. IMPRESSION: 1. Stable posttreatment changes involving the left kidney. There appears to be a partial nephrectomy with resection of the lower pole. 2. Hypodensities in the left or right renal cortex are too small to characterize but are statisticall y favored to be cysts. 2. Cholelithiasis without evidence of cholecystitis. Transcribed Date/Time: 03/13/2020 2:08 PM
== END 2020-03-13 09:10 | disposition home or self-care (01) ==
LOC: SCSCT 09:09
PROVIDERS: ATTEND Urology
DX: C64.2 Malignant neoplasm of left kidney, except renal pelvis (principal); K80.20 Calculus of gallbladder without cholecystitis without obstruction; N28.89 Other specified disorders of kidney and ureter
CPT/HCPCS: 74178

== ENCOUNTER 2020-07-23 14:58 | Emergency (ER) | payer MEDICARE, SELFPAY ==
[2020-07-23 16:59] LABS: Bilirubin Negative (Negative); Blood, Urine Trace (Negative); Clarity Turbid (Clear); Glucose, Urine (Dipstick) Normal (Negative); Ketone, Urine Negative (Negative); Leukocyte Negative Leu/uL (Negative); Nitrite Negative (Negative); Protein, Urine (Dipstick) 300 mg/dL (Neg-Trace); RBC/HPF 0-3 HPF (0-3); Specific Gravity, Urine 1.034 (1.002-1.036); Squamous Epithelial None Seen HPF (0-3); Urobilinogen Normal mg/dL (Less than 2)
[2020-07-23 17:00] LABS: Bacteria/HPF 2+ HPF (None Seen)
--- NOTE | 2020-07-23 17:21 | RAD ---
PORTABLE CHEST ONE VIEW: Date: 07-23-2020 Time: 4:58 p.m. History: Positive Covid 19 one week ago. Shortness of breath, increasing weakness, decreasing appetit e. Comparison: 07-16-2019 FINDINGS: The heart size is normal. The lungs are expanded without lobar consolidation, pneumothoraces or pleur al effusions. IMPRESSION: No acute process. POS: [facility]
[2020-07-23 17:30] LABS: #Lymphocytes 0.5 thou/uL (1.20-3.40); #Monocytes 0.5 thou/uL (0.11-0.59); #Neutrophils 3.6 thou/uL (1.40-6.50); %Basophils 0.5 % (0.0-1.0); %Eosinophils 0.1 % (0.0-10.0); %Lymphocytes 10.7 % (21.0-51.0); %Monocytes 10.1 % (0.0-10.0); %Neutrophils 78.5 % (42.0-75.0); Hemoglobin 15.2 g/dL (14.0-18.0); Mean Corpuscular HGB CONC 34.6 g/dL (32.0-36.0); Mean Corpuscular Hemoglobin 29.9 pg (27.0-31.0); Mean Corpuscular Volume 86.4 fL (78.0-98.0); Mean Platelet Volume 8.2 fL (7.4-10.4); Platelet Count 133 thou/uL (130-400); RBC Distribution Width 13.3 % (11.5-14.5); Red Blood Cell (RBC) Count 5.09 mill/uL (4.70-6.10); White Blood Cell (WBC) Count 4.6 thou/uL (4.8-10.8)
[2020-07-23 18:04] LABS: ALT (SGPT) 19 U/L (8-55); AST (SGOT) 29 U/L (5-34); Albumin 3.8 g/dL (3.4-4.8); Alkaline Phosphatase 82 U/L (40-110); Anion Gap 16 mmol/L (10-20); BUN (Urea Nitrogen) 22 mg/dL (8.4-25.7); Bilirubin, Total 1.1 mg/dL (0.2-1.2); Calc. Creatinine Clearance 0 mL/min (70-130); Calcium 8.5 mg/dL (7.8-10.44); Carbon Dioxide 19 mmol/L (23-31); Chloride 104 mmol/L (98-107); Globulin 3.5 g/dL (2.4-3.5); Glucose 113 mg/dL (83-110); Potassium 4.1 mmol/L (3.5-5.1); Protein, Total 7.3 g/dL (5.8-8.1); Sodium 135 mmol/L (136-145)
== END 2020-07-23 18:17 | disposition home or self-care (01) ==
LOC: ERS 14:58
DX: N39.0 Urinary tract infection, site not specified (principal); U07.1 COVID-19; I10 Essential (primary) hypertension; E78.5 Hyperlipidemia, unspecified; I48.91 Unspecified atrial fibrillation
CPT/HCPCS: 36415; 71045; 80053; 81003; 81015; 83880; 84484; 85025; 93005